=== PATIENT | female | born 1990 ===

== ENCOUNTER 2016-11-20 16:35 | Emergency (ER) | payer SELFPAY ==
[2016-11-20 17:16] LABS: URINE BILIRUBIN NEGATIVE (NEGATIVE); URINE BLOOD NEGATIVE (NEGATIVE); URINE COLOR Straw (YELLOW); URINE GLUCOSE (UA) NORMAL (Normal); URINE KETONE NEGATIVE (NEGATIVE); URINE LEUKOCYTE ESTERASE NEG Leu/uL (Negative); URINE PROTEIN NEGATIVE (NEGATIVE); URINE UROBILINOGEN NORMAL mg/dL (0.2-1.0); WBC URINE < 1 /hpf (0-5)
[2016-11-20] MEDS ORDERED: Sodium Chloride 0.9% 1,000 ML IV ONE (17:32)
[2016-11-20 17:47] LABS: BASO % 0.5 % (0.0-2.0); EOS # 0.3 K/uL (0.0-0.7); EOS % 3.8 % (0.0-4.0); HEMATOCRIT 36.5 % (34.0-47.0); LYMPH # 2.1 K/uL (1.0-4.3); LYMPH % 25.8 % (20.0-40.0); MEAN CELL VOLUME 87.9 fL (81.0-99.0); MEAN CORPUSCULAR HEMOGLOBIN 30.6 pg (27.0-31.0); MEAN CORPUSCULAR HGB CONC 34.8 g/dL (33.0-37.0); MEAN PLATELET VOLUME 8.3 fL (7.2-11.7); MONO # 0.6 K/uL (0.0-0.8); MONO % 6.6 % (0.0-10.0); RED CELL DISTRIBUTION WIDTH 12.6 % (11.5-14.5); WHITE BLOOD COUNT 8.3 K/uL (4.8-10.8)
[2016-11-20] MEDS ORDERED: Sodium Chloride 0.9% 1,000 ML ONE (17:50)
[2016-11-20 17:55] LABS: CHLORIDE 100 mmol/L (98-107); SODIUM 141 mmol/L (132-148)
[2016-11-20 17:56] LABS: POTASSIUM 4.2 mmol/L (3.6-5.2)
[2016-11-20 17:58] LABS: ALB/GLOB RATIO 1.2 (1.0-2.1); ALKALINE PHOSPHATASE 74 U/L (38-126); ALT/SGPT 27 U/L (9-52); AST/SGOT 25 U/L (14-36); BILIRUBIN,TOTAL 0.5 mg/dL (0.2-1.3); BLOOD UREA NITROGEN 11 mg/dL (7-17); CARBON DIOXIDE 28 mmol/L (22-30); GFR AFRICAN-AMERICAN > 60; GLUCOSE,RANDOM 90 mg/dL (65-105); TOTAL PROTEIN 7.7 g/dL (6.3-8.3)
[2016-11-20 17:59] LABS: CALCIUM 9.3 mg/dl (8.6-10.4)
[2016-11-20 19:02] VITALS: O2SAT 98
--- NOTE | 2016-11-20 21:35 | C.PDOC ---
Time Seen by Provider: 11/20/16 16:54 Chief Complaint (Nursing): Abdominal Pain History Per: Patient, Family Onset/Duration Of Symptoms: Hrs (since this morning), Waxing/Waning Current Symptoms Are (Timing): Still Present Severity: Moderate Location Of Pain/Discomfort: RLQ Quality Of Discomfort: "Pain" Alleviating Factors: None Additional History Per: Prior Records Abnormal Vaginal Bleeding: No Past Medical History Reviewed: Historical Data, Nursing Documentation, Vital Signs Vital Signs: Last Vital Signs Temp 98.2 F 11/20/16 16:43 Pulse 86 11/20/16 19:01 Resp 21 11/20/16 19:01 BP 84/55 L 11/20/16 19:01 Pulse Ox 98 11/20/16 19:01 - Medical History Other PMH: Ovarian cysts Surgical History: No Surg Hx Family History: States: Unknown Family Hx - Social History Hx Alcohol Use: No Hx Substance Use: No - Immunization History Hx Tetanus Toxoid Vaccination: No Hx Influenza Vaccination: No Hx Pneumococcal Vaccination: No Review Of Systems Except As Marked, All Systems Reviewed And Found Negative. Constitutional: Negative for: Fever, Weakness Cardiovascular: Negative for: Chest Pain Respiratory: Negative for: Shortness of Breath Gastrointestinal: Positive for: Abdominal Pain. Negative for: Vomiting, Diarrhea Genitourinary: Negative for: Dysuria, Vaginal Discharge, Vaginal Bleeding Musculoskeletal: Negative for: Neck Pain, Back Pain Skin: Negative for: Rash Neurological: Negative for: Weakness, Numbness, Seizures, Altered Mental Status Physical Exam - Physical Exam Appears: Non-toxic, No Acute Distress Skin: Normal Color, Warm, Dry, No Rash Head: Atraumatic, Normacephalic Eye(s): bilateral: Normal Inspection, PERRL, EOMI Neck: Normal ROM, Supple Cardiovascular: Rhythm Regular Respiratory: Normal Breath Sounds, No Accessory Muscle Use Gastrointestinal/Abdominal: Soft, Tenderness (RLQ), No Guarding, No Rebound Back: No CVA Tenderness Extremity: Normal ROM Neurological/Psych: Oriented x3, Normal Motor, Normal Sensation ED Course And Treatment - Laboratory Results Result Diagrams: 11/20/16 17:45 11/20/16 17:45 Lab Interpretation: No Acute Changes Urine POC: Negative O2 Sat by Pulse Oximetry: 98 Pulse Ox Interpretation: Normal - CT Scan/US Pelvic US Other Rad Studies (CT/US): Read By Radiologist, Radiology Report Reviewed CT/US Interpretation: 4cm simple right ovarian cyst. No primary or secondary sonographic findings or ovarian torsion. Progress Note: Pain resolved. Reassessment Condition: Improved Progress - Interventions Interventions:: Observation, Intravenous fluid - Medications Administered Intravenous: NSAID - Data Reviewed Data Reviewed: Lab, Diagnostic imaging, Old records - Patient Status Patient status: Completely improved - Continuity of Care Discussed patient case with:: Patient, Family-HIPPA compliant, ED Nurse - Patient Plan Patient Plan: Discharge, F/U with PCP Disposition Counseled Patient/Family Regarding: Studies Performed, Diagnosis, Need For Followup, Rx Given - Disposition Referrals: [facility] [Outside] Disposition: HOME/ ROUTINE Disposition Time: 21:35 Condition: IMPROVED Additional Instructions: Follow up with a Diet Technician Registered within 1-2 weeks for further evaluation and treatment. Return to the ER if you develop fever, vomiting, dizziness, worsening of symptoms or if you have any other concerns. Prescriptions: Ibuprofen [Motrin Tab] 400 mg PO TID PRN #30 tab PRN Reason: Pain, Moderate (4-7) Instructions: Ovarian Cyst (ED) Forms: [employer]Q (Solomon Islander) Print Language: CITIZ[place] - Clinical Impression Clinical Impression: Right ovarian cyst
[2016-11-20 21:52] VITALS: BP 105/69; PULSE 70; RESP 18; TEMP 98.3
--- NOTE | 2016-11-21 12:50 | US ---
HISTORY: RLQ pain, h/o ovarian cysts COMPARISON: None available. TECHNIQUE: Transabdominal and transvaginal ultrasound examination of the pelvis was obtained. FINDINGS: UTERUS: Measures 7.3 x 3.1 x 3.6 cm. Normal in size and appearance. No fibroid or other mass lesion seen. ENDOMETRIUM: Measures 3.2 mm in diameter. Unremarkable. CERVIX: No cervical abnormality identified. RIGHT OVARY: Measures 4.9 x 3.6 x 4.3 cm. No solid mass. Normal flow. There is 2.2 x 2.7 x 2.1 centimeters cyst seen at the right ovary. There is also 4 x 3.4 x 3.4 centimeter cyst seen at the right ovary. LEFT OVARY: Measures 3.3 x 2.1 x 3.3 cm. No solid mass. Normal flow. FREE FLUID: No significant free fluid noted. OTHER FINDINGS: None. IMPRESSION: Right adnexal cyst measures 4 centimeter. Additional right adnexal cyst measures 2.7 centimeter. If clinically warranted follow-up reassessment is suggested. Blood flow appreciated at the right ovary. Otherwise unremarkable study. Preliminary report was submitted by virtual Radiology.
== END 2016-11-20 21:54 | disposition home or self-care (01) ==
LOC: C.ER 16:35
DX: N83.201 Unspecified ovarian cyst, right side (principal)
CPT/HCPCS: 76830; 76856; 80053; 81001; 84703; 85025; 96361; 96374; 99284; J1885; J7040

== ENCOUNTER 2018-02-18 10:13 | Emergency (ER) | payer OTHER ==
[2018-02-18 10:14] VITALS: BMI 24.4
--- NOTE | 2018-02-18 11:25 | C.PDOC ---
History Of Present Illness 27 y/o female pt with PMHx of ovarian cyst presents to the ER for RLQ abdominal/pelvic pain today that worsened. feels like prior ovarian cyst. Associated sx includes nausea. LMP x6 months ago. Pt has a control implant in her upper arm. Pt denies vomiting, vaginal bleeding, vaginal discharge, urinary frequency, incontinence, hematuria and dysuria. no fever or chills, no change in appetite. Time Seen by Provider: 02/18/18 10:48 Chief Complaint (Nursing): Abdominal Pain History Per: Patient History/Exam Limitations: no limitations Onset/Duration Of Symptoms: Hrs Current Symptoms Are (Timing): Still Present Location Of Pain/Discomfort: RLQ Past Medical History Reviewed: Historical Data, Nursing Documentation, Vital Signs Vital Signs: Last Vital Signs Temp 97.6 F 02/18/18 10:34 Pulse 71 02/18/18 10:34 Resp 20 02/18/18 10:34 BP 93/55 L 02/18/18 10:34 Pulse Ox 99 02/18/18 10:34 Family History: States: Unknown Family Hx - Social History Hx Alcohol Use: No Hx Substance Use: No - Immunization History Hx Tetanus Toxoid Vaccination: No Hx Influenza Vaccination: No Hx Pneumococcal Vaccination: No Review Of Systems Constitutional: Negative for: Fever, Chills Cardiovascular: Negative for: Chest Pain Respiratory: Negative for: Cough, Shortness of Breath Gastrointestinal: Positive for: Nausea, Abdominal Pain (RLQ). Negative for: Vomiting Genitourinary: Positive for: Pelvic Pain (right). Negative for: Dysuria, Frequency, Incontinence, Hematuria, Vaginal Discharge, Vaginal Bleeding Musculoskeletal: Negative for: Back Pain Skin: Negative for: Rash Neurological: Negative for: Weakness, Numbness Physical Exam - Physical Exam Appears: Non-toxic, Other (uncomfortable) Skin: No Rash Head: Atraumatic, Normacephalic Eye(s): bilateral: Normal Inspection Neck: Supple Chest: No Tenderness Cardiovascular: Rhythm Regular, No Murmur Respiratory: No Rales, No Rhonchi, No Wheezing, Other (CTA b/l ) Gastrointestinal/Abdominal: Bowel Sounds (normoactive), Soft, Tenderness (right pelvic area, non tender at mcburneys point), No Distention, No Guarding, No Rebound Back: No CVA Tenderness Extremity: No Calf Tenderness, No Swelling Neurological/Psych: Oriented x3, Normal Speech, Normal Cognition ED Course And Treatment - Laboratory Results Result Diagrams: 02/18/18 11:40 02/18/18 11:40 O2 Sat by Pulse Oximetry: 99 (RA) Pulse Ox Interpretation: Normal Medical Decision Making Medical Decision Making: Impression: RLQ pain with nausea Plans: -- US -- CMP -- blood work -- morphine -- IV fluids -- U-Preg -- UA 1500 pt not . in pain, given morphine.. pt with 2 small ovarian cysts on right ovary with normal flow. pt has normal labs, no hematuria. no signs of urine infection. discussed with Dr Dubose; recommends toradol, re-eval and outpt radiotelegraphist f/u pt feels much better after toradol., discharged to outpatient radiotelegraphist f/u Disposition Counseled Patient/Family Regarding: Studies Performed, Diagnosis, Need For Followup, Rx Given - Disposition Referrals: [facility] at [facility] [Outside] Disposition: HOME/ ROUTINE Disposition Time: 16:55 Condition: IMPROVED Additional Instructions: [place] ibuprofeno para el dolor. Llame a la clnica el lunes por la maana y kristine la annel ms pronto con la sisi de la katina. Regrese a la ramírez de emergencias para un dolor peor, vmitos u otras preocupaciones. Take ibuprofen for pain. Call clinic on Tuesday morning and make soonest appointment with women's health. Return to ER for any worse pain vomiting otr other concerns. Prescriptions: Ibuprofen [Motrin] 600 mg PO TID #30 tab Instructions: Ovarian Cyst (DC) Forms: Gen Discharge Inst Serbian, [employer] (Serbian) Print Language: TRINIDADIAN - Clinical Impression Clinical Impression: Ovarian cyst, right - PA / ASSURANCE ANALYST / Resident Statement / has reviewed & agrees with the documentation as recorded. - Scribe Statement The provider has reviewed the documentation as recorded by the Aime Boateng Do All medical record entries made by the Scribe were at my direction and personally dictated by me. I have reviewed the chart and agree that the record accurately reflects my personal performance of the history, physical exam, medical decision making, and the department course for this patient. I have also personally directed, reviewed, and agree with the discharge instructions and disposition.
[2018-02-18] MEDS ORDERED: Sodium Chloride 0.9% 1,000 ML IV SCH (11:30)
[2018-02-18 11:34] LABS: SQUAMOUS EPITHIAL 8 /hpf (0-5); URINE BILIRUBIN NEGATIVE (NEGATIVE); URINE BLOOD NEGATIVE (NEGATIVE); URINE CLARITY Hazy (Clear); URINE COLOR Yellow (YELLOW); URINE GLUCOSE (UA) NORMAL (Normal); URINE LEUKOCYTE ESTERASE NEG Leu/uL (Negative); URINE PROTEIN NEGATIVE (NEGATIVE); URINE UROBILINOGEN NORMAL mg/dL (0.2-1.0)
[2018-02-18] MEDS ORDERED: Sodium Chloride 0.9% 1,000 ML ONE (11:42)
[2018-02-18 11:44] LABS: BASO % 0.3 % (0.0-2.0); EOS # 0.4 K/uL (0.0-0.7); EOS % 5.8 % (0.0-4.0); HEMOGLOBIN 12.9 g/dL (11.0-16.0); LYMPH # 1.4 K/uL (1.0-4.3); LYMPH % 20.9 % (20.0-40.0); MEAN CELL VOLUME 89.8 fL (81.0-99.0); MEAN CORPUSCULAR HEMOGLOBIN 31.1 pg (27.0-31.0); MEAN CORPUSCULAR HGB CONC 34.6 g/dL (33.0-37.0); MONO # 0.4 K/uL (0.0-0.8); MONO % 6.1 % (0.0-10.0); NEUT # 4.5 K/uL (1.8-7.0); NEUT % 66.9 % (50.0-75.0); RBC 4.14 Mil/uL (3.80-5.20); RED CELL DISTRIBUTION WIDTH 12.8 % (11.5-14.5); WHITE BLOOD COUNT 6.7 K/uL (4.8-10.8)
[2018-02-18 11:54] LABS: ALB/GLOB RATIO 1.4 (1.0-2.1); ALBUMIN 4.6 g/dL (3.5-5.0); ALT/SGPT 28 U/L (9-52); AST/SGOT 27 U/L (14-36); BLOOD UREA NITROGEN 14 mg/dL (7-17); CALCIUM 9.4 mg/dl (8.6-10.4); GFR NON-AFRICAN AMERICAN > 60
--- NOTE | 2018-02-18 14:03 | US ---
Date of service: 02/18/2018 HISTORY: RLQ pain. hx right cyst COMPARISON: None available. TECHNIQUE: Transabdominal/transvaginal FINDINGS: UTERUS: Measures 6.1 x 2.5 x 3.0 cm. Anteverted. Normal in size and appearance. No fibroid or other mass lesion seen. ENDOMETRIUM: Measures 4.5 mm mm in diameter. Unremarkable. CERVIX: No cervical abnormality identified. RIGHT OVARY: Measures 2.6 x 4.6 x 5.3 cm. No solid mass. Normal flow.. There are 2 cysts present of the 1st measuring 2.7 x 2.2 x 2.8 and another adjacent cyst measuring 2.9 x 2.5 x 3.0 cm. LEFT OVARY: Seen on transabdominal study only measures approximately 3.3 x 1.7 x 2.8 cm. No solid mass. Normal flow. FREE FLUID: No significant free fluid noted. OTHER FINDINGS: None. IMPRESSION: 2 right-sided ovarian cysts.
[2018-02-18 16:47] VITALS: BP 131/72; PULSE 86; RESP 16; TEMP 98.2
[2018-02-18 16:54] VITALS: O2SAT 99
== END 2018-02-18 17:14 | disposition home or self-care (01) ==
LOC: C.ER 10:13
DX: N83.201 Unspecified ovarian cyst, right side (principal)
CPT/HCPCS: 76830; 76856; 80053; 81001; 85025; 96361; 96374; 96375; 96376; 99284; J2270; J2405; J7030

== ENCOUNTER 2018-02-21 01:10 | Inpatient (IN) | payer OTHER ==
[2018-02-21 01:10] VITALS: BMI 24.4
[2018-02-21] MEDS ORDERED: Sodium Chloride 0.9% 1,000 ML IV ONE ×2 (01:31→05:48)
--- NOTE | 2018-02-21 01:31 | C.PDOC ---
History Of Present Illness Patient presents to the ER with a complaint of a sharp stabbing RLQ abdominal pain. She was seen 3 days ago in the ER where she had an US that showed ovarian cyst and negative blood work. Patient presents today because the pain is un relieved with motrin. Denies fever, chills, nausea, or vomiting. Time Seen by Provider: 02/21/18 01:30 Chief Complaint (Nursing): Abdominal Pain History Per: Patient History/Exam Limitations: no limitations Onset/Duration Of Symptoms: Days Current Symptoms Are (Timing): Still Present Severity: Moderate Pain Scale Rating Of: 5 Location Of Pain/Discomfort: RLQ Radiation Of Pain To:: None Quality Of Discomfort: Sharp, Stabbing Associated Symptoms: denies: Fever, Chills, Nausea, Vomiting Exacerbating Factors: None Alleviating Factors: None Recent travel outside of the [place]: No Abnormal Vaginal Bleeding: No Past Medical History Reviewed: Historical Data, Nursing Documentation, Vital Signs Vital Signs: Last Vital Signs Temp 98.4 F 02/21/18 01:14 Pulse 90 02/21/18 01:14 Resp 20 02/21/18 01:14 BP 108/71 02/21/18 01:14 Pulse Ox 97 02/21/18 01:14 Family History: States: No Known Family Hx - Social History Hx Alcohol Use: No Hx Substance Use: No - Immunization History Hx Tetanus Toxoid Vaccination: No Hx Influenza Vaccination: No Hx Pneumococcal Vaccination: No Review Of Systems Constitutional: Negative for: Fever, Chills Cardiovascular: Negative for: Chest Pain, Palpitations Respiratory: Negative for: Cough, Shortness of Breath Gastrointestinal: Positive for: Abdominal Pain. Negative for: Nausea, Vomiting Neurological: Negative for: Weakness, Numbness Physical Exam - Physical Exam Appears: Non-toxic Skin: Warm, Dry Head: Normacephalic Oral Mucosa: Moist Chest: Symmetrical, No Tenderness Cardiovascular: Rhythm Regular Respiratory: No Rales, No Rhonchi, No Wheezing Gastrointestinal/Abdominal: Soft, Tenderness (RLQ), No Guarding, No Rebound Neurological/Psych: Oriented x3 ED Course And Treatment - Laboratory Results Result Diagrams: 02/21/18 01:39 02/21/18 01:38 O2 Sat by Pulse Oximetry: 97 (room air) Pulse Ox Interpretation: Normal Progress Note: CT abd/pel, blood work, and urinalysis ordered. IV fluids, morphine, toradol, and zofran administered. Disposition Discussed With : Wilman Cardenas Comment: accepted the pt on his service and took over the care at 5:48AM Doctor Will See Patient In The: Hospital Counseled Patient/Family Regarding: Studies Performed, Diagnosis - Disposition Disposition: HOSPITALIZED Disposition Time: 01:31 Condition: FAIR Forms: [employer] (Micronesian) - POA Present On Arrival: None - Clinical Impression Clinical Impression: Abdominal pain, Constipation, Appendicolith - Scribe Statement The provider has reviewed the documentation as recorded by the Scribmaria g Murcia All medical record entries made by the Olvinibe were at my direction and personally dictated by me. I have reviewed the chart and agree that the record accurately reflects my personal performance of the history, physical exam, medical decision making, and the department course for this patient. I have also personally directed, reviewed, and agree with the discharge instructions and disposition. Decision To Admit - Pt Status Changed To: Hospital Disposition Of: Inpatient - Admit Certification Admit to Inpatient:: After my assessment, the patient will require hospitalization for at least two midnights. This is because of the severity of symptoms shown, intensity of services needed, and/or the medical risk in this patient being treated as an outpatient. - InPatient: Physician Admission Certification:: After my assessment, the patient will require hospitalization for at least two midnights. This is because of the severity of symptoms shown, intensity of services needed, and/or the medical risk in this patient being treated as an outpatient. - . Bed Request Type: Regular Admitting Physician: Wilman Cardenas Patient Diagnosis: Abdominal pain, Constipation, Appendicolith
[2018-02-21 01:42] LABS: BASO % 0.3 % (0.0-2.0); EOS # 0.8 K/uL (0.0-0.7); EOS % 9.7 % (0.0-4.0); HEMOGLOBIN 12.5 g/dL (11.0-16.0); LYMPH # 3.1 K/uL (1.0-4.3); LYMPH % 38.8 % (20.0-40.0); MEAN CORPUSCULAR HGB CONC 34.1 g/dL (33.0-37.0); MEAN PLATELET VOLUME 8.3 fL (7.2-11.7); MONO # 0.6 K/uL (0.0-0.8); MONO % 7.2 % (0.0-10.0); NEUT # 3.5 K/uL (1.8-7.0); RBC 4.02 Mil/uL (3.80-5.20); RED CELL DISTRIBUTION WIDTH 12.8 % (11.5-14.5); WHITE BLOOD COUNT 8.1 K/uL (4.8-10.8)
[2018-02-21] MEDS ORDERED: Sodium Chloride 0.9% 1,000 ML ONE (01:42)
[2018-02-21] MEDS ORDERED: Morphine 4 MG/ML VIAL ONE ×2 (01:42→04:17)
[2018-02-21] MEDS ORDERED: Iohexol 240 (50 ml) ONE (01:47)
[2018-02-21 01:48] LABS: SQUAMOUS EPITHIAL 1 /hpf (0-5); URINE BILIRUBIN NEGATIVE (NEGATIVE); URINE BLOOD NEGATIVE (NEGATIVE); URINE CLARITY Clear (Clear); URINE COLOR Yellow (YELLOW); URINE GLUCOSE (UA) NORMAL (Normal); URINE LEUKOCYTE ESTERASE NEG Leu/uL (Negative); URINE PROTEIN NEGATIVE (NEGATIVE); URINE UROBILINOGEN NORMAL mg/dL (0.2-1.0)
[2018-02-21 01:49] LABS: HCG,QUALITATIVE URINE NEGATIVE (NEGATIVE)
[2018-02-21 01:54] LABS: INR 1.1; PROTHROMBIN TIME 11.6 SECONDS (9.7-12.2)
[2018-02-21 01:56] LABS: ALB/GLOB RATIO 1.4 (1.0-2.1); ALBUMIN 4.5 g/dL (3.5-5.0); ALT/SGPT 25 U/L (9-52); AST/SGOT 25 U/L (14-36); BLOOD UREA NITROGEN 14 mg/dL (7-17); CALCIUM 9.1 mg/dl (8.6-10.4); GFR NON-AFRICAN AMERICAN > 60; LIPASE 71 U/L (23-300)
[2018-02-21] MEDS ORDERED: Iodixanol 320 MG/ML 100 ML BOTTLE IV ONE (02:04)
[2018-02-21] MEDS ORDERED: Iohexol 240 (50 ml) PO ONE (03:42)
--- NOTE | 2018-02-21 05:55 | CP.PCM.CON ---
History of Present Illness - History of Present Illness History of Present Illness: General Surgery Consult For Dr. Soto This is a 27F with a PMH of hyperprolactinemia. She presents due to right sided abdominal pain that she has had since Tuesday. She reports that she has never had pain like this in the past. She reports that the pain was gradual onset Tuesday and that it was always localized to the right side. She reports that pain almost feels like pressure and it is relieved when she feels gas moving in her abdomen and when she urinates. She does not recall when she had her last bowel movement however she does pass gas. She denies any fevers chills chest pain or SOB, nausea, or vomiting. In the ED she had CT scan scan showed stool throughout the colon, a right sided ovarian cyst, and an apendicolith. PMH: See above PSH: Denies ALL: Bromocriptine Social: Denies Vices Review of Systems - Constitutional Constitutional: absent: Anorexia, Chills, Fever - EENT Eyes: absent: Blurred Vision, Change in Vision - Cardiovascular Cardiovascular: absent: Chest Pain, Dyspnea - Respiratory Respiratory: absent: Dyspnea, Dyspnea on Exertion - Gastrointestinal Gastrointestinal: Abdominal Pain, Bloating, Constipation. absent: Diarrhea, Loose Stools, Nausea, Vomiting - Genitourinary Genitourinary: absent: Difficulty Urinating, Dysuria - Musculoskeletal Musculoskeletal: absent: Arthralgias, Muscle Weakness - Integumentary Integumentary: absent: Rash, Wounds Past Patient History - Past Social History Smoking Status: Never Smoked - ENDOCRINE/METABOLIC Other/Comment: Elevated Prolactine - PSYCHIATRIC Hx Substance Use: No - SURGICAL HISTORY Hx Surgeries: No - ANESTHESIA Hx Anesthesia: No Meds Allergies/Adverse Reactions: Allergies Allergy/AdvReac Type Severity Reaction Status Date / Time No Known Allergies Allergy Verified 08/19/17 20:17 - Medications Medications: Current Medications Sodium Chloride (Sodium Chloride 0.9%) 1,000 mls @ 100 mls/hr IV .Q10H ONE Stop: 02/21/18 15:47 Physical Exam - Constitutional Appears: Non-toxic, No Acute Distress - Head Exam Head Exam: ATRAUMATIC, NORMOCEPHALIC - Eye Exam Eye Exam: EOMI, Normal appearance - ENT Exam ENT Exam: Mucous Membranes Moist - Respiratory Exam Respiratory Exam: NORMAL BREATHING PATTERN - Cardiovascular Exam Cardiovascular Exam: +S1, +S2 - GI/Abdominal Exam GI & Abdominal Exam: Soft, Tenderness. absent: Distended, Firm, Guarding, Hernia, Rebound, Rigid - Neurological Exam Neurological exam: Alert, Oriented x3 - Psychiatric Exam Psychiatric exam: Normal Affect, Normal Mood - Skin Skin Exam: Dry, Intact Results - Vital Signs Recent Vital Signs: Last Vital Signs Temp 98.1 F 02/21/18 04:24 Pulse 79 02/21/18 04:24 Resp 20 02/21/18 04:24 BP 109/63 02/21/18 04:24 Pulse Ox 99 02/21/18 04:24 - Labs Result Diagrams: 02/21/18 01:39 02/21/18 01:38 Labs: Laboratory Results - last 24 hr 02/21/18 02/21/18 02/21/18 01:38 01:39 01:39 WBC 8.1 RBC 4.02 Hgb 12.5 Hct 36.6 MCV 91.0 MCH 31.0 MCHC 34.1 RDW 12.8 Plt Count 277 MPV 8.3 Neut % (Auto) 44.0 L Lymph % (Auto) 38.8 [place] % (Auto) 7.2 Eos % (Auto) 9.7 H Baso % (Auto) 0.3 Neut # (Auto) 3.5 Lymph # (Auto) 3.1 [place] # (Auto) 0.6 Eos # (Auto) 0.8 H Baso # (Auto) 0.0 PT 11.6 INR 1.1 APTT 35 H Sodium 140 Potassium 4.1 Chloride 102 Carbon Dioxide 28 Anion Gap 14 BUN 14 Creatinine 0.8 Est GFR ( Amer) > 60 Est GFR (Non-Af Amer) > 60 Random Glucose 112 H Calcium 9.1 Total Bilirubin 0.3 AST 25 ALT 25 Alkaline Phosphatase 79 Total Protein 7.7 Albumin 4.5 Globulin 3.1 Albumin/Globulin Ratio 1.4 Lipase 71 Urine Color Urine Clarity Urine pH Ur Specific [place] Urine Protein Urine Glucose (UA) Urine Ketones Urine Blood Urine Nitrate Urine Bilirubin Urine Urobilinogen Ur Leukocyte Esterase Urine WBC (Auto) Urine RBC (Auto) Ur Squamous Epith Cells Urine HCG, Qual 02/21/18 01:40 WBC RBC Hgb Hct MCV MCH MCHC RDW Plt Count MPV Neut % (Auto) Lymph % (Auto) [place] % (Auto) Eos % (Auto) Baso % (Auto) Neut # (Auto) Lymph # (Auto) [place] # (Auto) Eos # (Auto) Baso # (Auto) PT INR APTT Sodium Potassium Chloride Carbon Dioxide Anion Gap BUN Creatinine Est GFR ( Amer) Est GFR (Non-Af Amer) Random Glucose Calcium Total Bilirubin AST ALT Alkaline Phosphatase Total Protein Albumin Globulin Albumin/Globulin Ratio Lipase Urine Color Yellow Urine Clarity Clear Urine pH 7.0 Ur Specific [place] 1.021 Urine Protein Negative Urine Glucose (UA) Normal Urine Ketones Negative Urine Blood Negative Urine Nitrate Negative Urine Bilirubin Negative Urine Urobilinogen Normal Ur Leukocyte Esterase Neg Urine WBC (Auto) < 1 Urine RBC (Auto) 3 Ur Squamous Epith Cells 1 Urine HCG, Qual Negative - Imaging and Cardiology CT scan - abdomen Status: Image reviewed by me, Report reviewed by me CT scan - pelvis Status: Image reviewed by me, Report reviewed by me Assessment & Plan - Assessment and Plan (Free Text) Assessment: 27F with abdominal pain CT: Stool throughout colon, appendicolith, right sided ovarian cyst Plan: NPO IVF Followup official CT report Serial Abdominal exams Enema D/W Dr. Brittany Resendez PGY3
[2018-02-21] MEDS ORDERED: Albuterol 0.083% Inhal Sol (2.5 mg/3 mL) UD ONE (06:28)
--- NOTE | 2018-02-21 07:22 | CP.PCM.HP ---
History of Present Illness - History of Present Illness History of Present Illness: Ms. Nathen Jacobs is 27 year old female with a PMHx of ovarian cyst and elevated prolactin levels who presents with 10/10, sharp, abdominal pain that radiates to her back. She denies any aggravating factors but states it is relieved with urination and defecation. She denies using any modalities to treat the pain. Patient had a similar pain on Tuesday, TV US showed ovarian cyst. Patient was given morphine in the ED with resolution of her pain, she was discharged with Ibuprofen. ROS POSITIVE: Abdominal pain, Constipation, NBNB Vomiting (On Tuesday) NEGATIVES: Fevers, chills, Chest Pain, SOB, nausea, vomiting (Since admission), diarrhea, urinary frequency/urgency, dysuria. PMHx: Ovarian Cyst, Elevated Prolactin Lvl PSHx: Denies Allergies: Flax Seeds (Anaphylaxis), Bromocriptine (Anaphylaxis) SocialHx: Denies tobacco, EtoH, and illicit drug use Hos: Denies Family History: Abdominal Muscle CA - Father () Meds: Nexplanon (Left Arm) Present on Admission - Present on Admission Any Indicators Present on Admission: No Review of Systems - Review of Systems All systems: reviewed and no additional remarkable complaints except (As per HPI) Review of Systems: As per HPI Past Patient History - Past Social History Smoking Status: Never Smoked - ENDOCRINE/METABOLIC Other/Comment: Elevated Prolactine - PSYCHIATRIC Hx Substance Use: No - SURGICAL HISTORY Hx Surgeries: No - ANESTHESIA Hx Anesthesia: No Meds Allergies/Adverse Reactions: Allergies Allergy/AdvReac Type Severity Reaction Status Date / Time bromocriptine Allergy ANAPHYLAXIS Verified 02/21/18 14:10 flaxseed Allergy ANAPHYLAXIS Verified 02/21/18 14:10 Physical Exam - Constitutional Appears: Well, Non-toxic, No Acute Distress - Head Exam Head Exam: ATRAUMATIC, NORMAL INSPECTION, NORMOCEPHALIC - Eye Exam Eye Exam: EOMI, Normal appearance - ENT Exam ENT Exam: Mucous Membranes Moist - Neck Exam Neck exam: Negative for: Lymphadenopathy - Respiratory Exam Respiratory Exam: Clear to Auscultation Bilateral. absent: Accessory Muscle Use, Rales, Rhonchi, Wheezes - Cardiovascular Exam Cardiovascular Exam: RRR, +S1, +S2 - GI/Abdominal Exam GI & Abdominal Exam: Hyperactive Bowel Sounds, Soft, Tenderness (RUQ). absent: Distended, Firm, Guarding, Rebound Additional comments: Trimble's sign Negative - Extremities Exam Extremities exam: Positive for: normal capillary refill, normal inspection, pedal pulses present. Negative for: pedal edema - Back Exam Back exam: absent: CVA tenderness (L), CVA tenderness (R) - Neurological Exam Neurological exam: Alert, Oriented x3 - Psychiatric Exam Psychiatric exam: Normal Affect, Normal Mood - Skin Skin Exam: Dry, Intact, Normal Color, Warm Results - Vital Signs Recent Vital Signs: Last Vital Signs Temp 97.6 F 02/21/18 06:48 Pulse 74 02/21/18 06:48 Resp 20 02/21/18 06:48 BP 102/61 02/21/18 06:48 Pulse Ox 100 02/21/18 06:48 - Labs Result Diagrams: 02/21/18 01:39 02/21/18 01:38 Labs: Laboratory Results - last 24 hr 02/21/18 02/21/18 02/21/18 01:38 01:39 01:39 WBC 8.1 RBC 4.02 Hgb 12.5 Hct 36.6 MCV 91.0 MCH 31.0 MCHC 34.1 RDW 12.8 Plt Count 277 MPV 8.3 Neut % (Auto) 44.0 L Lymph % (Auto) 38.8 Lucas % (Auto) 7.2 Eos % (Auto) 9.7 H Baso % (Auto) 0.3 Neut # (Auto) 3.5 Lymph # (Auto) 3.1 [place] # (Auto) 0.6 Eos # (Auto) 0.8 H Baso # (Auto) 0.0 PT 11.6 INR 1.1 APTT 35 H Sodium 140 Potassium 4.1 Chloride 102 Carbon Dioxide 28 Anion Gap 14 BUN 14 Creatinine 0.8 Est GFR ( Amer) > 60 Est GFR (Non-Af Amer) > 60 Random Glucose 112 H Calcium 9.1 Total Bilirubin 0.3 AST 25 ALT 25 Alkaline Phosphatase 79 Total Protein 7.7 Albumin 4.5 Globulin 3.1 Albumin/Globulin Ratio 1.4 Lipase 71 Urine Color Urine Clarity Urine pH Ur Specific [place] Urine Protein Urine Glucose (UA) Urine Ketones Urine Blood Urine Nitrate Urine Bilirubin Urine Urobilinogen Ur Leukocyte Esterase Urine WBC (Auto) Urine RBC (Auto) Ur Squamous Epith Cells Urine HCG, Qual 02/21/18 01:40 WBC RBC Hgb Hct MCV MCH MCHC RDW Plt Count MPV Neut % (Auto) Lymph % (Auto) [place] % (Auto) Eos % (Auto) Baso % (Auto) Neut # (Auto) Lymph # (Auto) [place] # (Auto) Eos # (Auto) Baso # (Auto) PT INR APTT Sodium Potassium Chloride Carbon Dioxide Anion Gap BUN Creatinine Est GFR ( Amer) Est GFR (Non-Af Amer) Random Glucose Calcium Total Bilirubin AST ALT Alkaline Phosphatase Total Protein Albumin Globulin Albumin/Globulin Ratio Lipase Urine Color Yellow Urine Clarity Clear Urine pH 7.0 Ur Specific [place] 1.021 Urine Protein Negative Urine Glucose (UA) Normal Urine Ketones Negative Urine Blood Negative Urine Nitrate Negative Urine Bilirubin Negative Urine Urobilinogen Normal Ur Leukocyte Esterase Neg Urine WBC (Auto) < 1 Urine RBC (Auto) 3 Ur Squamous Epith Cells 1 Urine HCG, Qual Negative Assessment & Plan - Assessment and Plan (Free Text) Assessment: 27 year old female with PMHx of Ovarian Cyst and elevated prolactin lvls admitted for evaluation and treatment of abdominal pain. Plan: Abdominal Pain DDx: Constipation vs Acute Appendicitis. CT Abd/Pelvis (Admission): The tip of the appendix is dilated and contains a 5 mm appendicolith. The tip of the appendix is 15 mm in diameter. There are no inflammatory changes. Findings could represent early appendicitis. Clinical correlation is suggested. There are 2 contiguous 3 cm right adnexal cysts. There is no fluid in the cul-de-sac to suggest cyst rupture General Surgery Consulted (Dr. Soto), Recs appreciated. -Enema x 1, Serial Abd Exams, NPO, IVF Meds: Morphine 2 Q4H PRN Zofran NS @ 100mls/hr Tylenol PRN Proph NPO, SCD's Patient seen and discussed with Attending (Dr. Dimitris Cardenas) Deyvi Singh, PGY-2
--- NOTE | 2018-02-21 09:52 | CT ---
Date of service: 02/21/2018 PROCEDURE: CT Abdomen and Pelvis with contrast HISTORY: rlq abd pain , ovarian cysts COMPARISON: None. TECHNIQUE: Contrast dose: 100 cc of Visipaque Radiation dose: Total exam DLP = 241.9 mGy-cm. This CT exam was performed using one or more of the following dose reduction techniques: Automated exposure control, adjustment of the mA and/or kV according to patient size, and/or use of iterative reconstruction technique. FINDINGS: LOWER THORAX: Unremarkable. LIVER: There is a 4.4 cm enhancing lesion in the right lobe of the liver. The features are consistent with hemangioma GALLBLADDER AND BILE DUCTS: Unremarkable. PANCREAS: Unremarkable. No gross lesion or ductal dilatation. SPLEEN: Unremarkable. ADRENALS: Unremarkable. No mass. KIDNEYS AND URETERS: Unremarkable. No hydronephrosis. No solid mass. VASCULATURE: Unremarkable. No aortic aneurysm. No aortic atherosclerotic calcification or mural plaque present. BOWEL: Unremarkable. No obstruction. No gross mural thickening. APPENDIX: The tip of the appendix is dilated and contains a 5 mm appendicolith. The tip of the appendix is 15 mm in diameter. There are no inflammatory changes. Findings could represent early appendicitis. Clinical correlation is suggested PERITONEUM: Unremarkable. No free fluid. No free air. LYMPH NODES: Unremarkable. No enlarged lymph nodes. BLADDER: Unremarkable. REPRODUCTIVE: There are 2 contiguous 3 cm right adnexal cysts. There is no fluid in the cul-de-sac to suggest cyst rupture BONES: No acute fracture. OTHER FINDINGS: The report concurs with the preliminary [facility] report IMPRESSION: The tip of the appendix is dilated and contains a 5 mm appendicolith. The tip of the appendix is 15 mm in diameter. There are no inflammatory changes. Findings could represent early appendicitis. Clinical correlation is suggested There are 2 contiguous 3 cm right adnexal cysts. There is no fluid in the cul-de-sac to suggest cyst rupture
[2018-02-21 11:17] VITALS: RESP 20
--- NOTE | 2018-02-21 15:42 | CP.PCM.HP ---
History of Present Illness - History of Present Illness History of Present Illness: Patient came in with right lower quadrant pain to the emergency room without nausea fever chills patient's family bedside I spoke to Dr. vito Saini surgical doctor who claims most likely constipation although he spoke to the GI doctor who wants to repeat the CAT scan after an enema CT scan revealed deep of the appendix dilated and contains 5 metal appendicolith tip of the appendix is 15 mm in diameter no inflammatory process may be early appendiceal Present on Admission - Present on Admission Any Indicators Present on Admission: No Past Patient History - Past Medical History & Family History Past Medical History?: Yes - Past Social History Smoking Status: Never Smoked - CARDIAC Hx Cardiac Disorders: No - PULMONARY Hx Respiratory Disorders: No - NEUROLOGICAL Hx Neurological Disorder: No - HEENT Hx HEENT Problems: No - RENAL Hx Chronic Kidney Disease: No - ENDOCRINE/METABOLIC Other/Comment: Elevated Prolactine - HEMATOLOGICAL/ONCOLOGICAL Hx Blood Disorders: No - INTEGUMENTARY Hx Dermatological Problems: No - MUSCULOSKELETAL/RHEUMATOLOGICAL Hx Musculoskeletal Disorders: No Hx Falls: No - GASTROINTESTINAL Hx Gastrointestinal Disorders: No - GENITOURINARY/GYNECOLOGICAL Other/Comment: ovarian cyst - PSYCHIATRIC Hx Substance Use: No - SURGICAL HISTORY Hx Surgeries: No - ANESTHESIA Hx Anesthesia: No Meds Allergies/Adverse Reactions: Allergies Allergy/AdvReac Type Severity Reaction Status Date / Time bromocriptine Allergy ANAPHYLAXIS Verified 02/21/18 14:10 flaxseed Allergy ANAPHYLAXIS Verified 02/21/18 14:10 Physical Exam - Constitutional Appears: Well - Head Exam Head Exam: ATRAUMATIC, NORMAL INSPECTION, NORMOCEPHALIC - Eye Exam Eye Exam: EOMI, Normal appearance, PERRL Pupil Exam: NORMAL ACCOMODATION, PERRL - ENT Exam ENT Exam: Mucous Membranes Moist, Normal Exam - Neck Exam Neck exam: Positive for: Normal Inspection - Respiratory Exam Respiratory Exam: Decreased Breath Sounds - Cardiovascular Exam Cardiovascular Exam: REGULAR RHYTHM, +S1, +S2 - GI/Abdominal Exam GI & Abdominal Exam: Diminished Bowel Sounds, Soft - Rectal Exam Rectal Exam: Deferred Results - Vital Signs Recent Vital Signs: Last Vital Signs Temp 99.1 F 02/21/18 09:15 Pulse 60 02/21/18 09:15 Resp 20 02/21/18 09:15 BP 102/64 02/21/18 09:15 Pulse Ox 99 02/21/18 09:15 - Labs Result Diagrams: 02/21/18 01:39 02/21/18 01:38 Labs: Laboratory Results - last 24 hr 02/21/18 02/21/18 02/21/18 01:38 01:39 01:39 WBC 8.1 RBC 4.02 Hgb 12.5 Hct 36.6 MCV 91.0 MCH 31.0 MCHC 34.1 RDW 12.8 Plt Count 277 MPV 8.3 Neut % (Auto) 44.0 L Lymph % (Auto) 38.8 [place] % (Auto) 7.2 Eos % (Auto) 9.7 H Baso % (Auto) 0.3 Neut # (Auto) 3.5 Lymph # (Auto) 3.1 [place] # (Auto) 0.6 Eos # (Auto) 0.8 H Baso # (Auto) 0.0 PT 11.6 INR 1.1 APTT 35 H Sodium 140 Potassium 4.1 Chloride 102 Carbon Dioxide 28 Anion Gap 14 BUN 14 Creatinine 0.8 Est GFR ( Amer) > 60 Est GFR (Non-Af Amer) > 60 Random Glucose 112 H Calcium 9.1 Phosphorus 4.4 Magnesium 2.1 Total Bilirubin 0.3 AST 25 ALT 25 Alkaline Phosphatase 79 Total Protein 7.7 Albumin 4.5 Globulin 3.1 Albumin/Globulin Ratio 1.4 Lipase 71 Urine Color Urine Clarity Urine pH Ur Specific [place] Urine Protein Urine Glucose (UA) Urine Ketones Urine Blood Urine Nitrate Urine Bilirubin Urine Urobilinogen Ur Leukocyte Esterase Urine WBC (Auto) Urine RBC (Auto) Ur Squamous Epith Cells Urine HCG, Qual 02/21/18 01:40 WBC RBC Hgb Hct MCV MCH MCHC RDW Plt Count MPV Neut % (Auto) Lymph % (Auto) [place] % (Auto) Eos % (Auto) Baso % (Auto) Neut # (Auto) Lymph # (Auto) [place] # (Auto) Eos # (Auto) Baso # (Auto) PT INR APTT Sodium Potassium Chloride Carbon Dioxide Anion Gap BUN Creatinine Est GFR ( Amer) Est GFR (Non-Af Amer) Random Glucose Calcium Phosphorus Magnesium Total Bilirubin AST ALT Alkaline Phosphatase Total Protein Albumin Globulin Albumin/Globulin Ratio Lipase Urine Color Yellow Urine Clarity Clear Urine pH 7.0 Ur Specific [place] 1.021 Urine Protein Negative Urine Glucose (UA) Normal Urine Ketones Negative Urine Blood Negative Urine Nitrate Negative Urine Bilirubin Negative Urine Urobilinogen Normal Ur Leukocyte Esterase Neg Urine WBC (Auto) < 1 Urine RBC (Auto) 3 Ur Squamous Epith Cells 1 Urine HCG, Qual Negative Assessment & Plan - Assessment and Plan (Free Text) Plan: Plan ultrasound workup as an outpatient's Fleet Enema Surgical follow-up GI follow-up Morphine sx want to repeat the CAT scan after the enema if phleboliths will still be there may need a surgery Abdominal Pain DDx: Constipation vs Acute Appendicitis. CT Abd/Pelvis (Admission): The tip of the appendix is dilated and contains a 5 mm appendicolith. The tip of the appendix is 15 mm in diameter. There are no inflammatory changes. Findings could represent early appendicitis. Clinical correlation is suggested. There are 2 contiguous 3 cm right adnexal cysts. There is no fluid in the cul-de-sac to suggest cyst rupture General Surgery Consulted (Dr. Soto), Recs appreciated. -Enema x 1, Serial Abd Exams, NPO, IVF Meds: Morphine 2 Q4H PRN Zofran NS @ 100mls/hr Tylenol PRN Proph NPO, SCD's oarian cyst adn adnexial cyst wrk up as outpt
[2018-02-22 01:03] VITALS: TEMP 98.5
[2018-02-22 07:27] LABS: BASO % 0.4 % (0.0-2.0); EOS # 0.6 K/uL (0.0-0.7); EOS % 10.2 % (0.0-4.0); HEMOGLOBIN 12.4 g/dL (11.0-16.0); LYMPH # 2.3 K/uL (1.0-4.3); LYMPH % 37.2 % (20.0-40.0); MEAN CORPUSCULAR HEMOGLOBIN 30.6 pg (27.0-31.0); MEAN CORPUSCULAR HGB CONC 33.7 g/dL (33.0-37.0); MEAN PLATELET VOLUME 8.4 fL (7.2-11.7); MONO # 0.4 K/uL (0.0-0.8); MONO % 7.3 % (0.0-10.0); NEUT # 2.7 K/uL (1.8-7.0); NEUT % 44.9 % (50.0-75.0); RBC 4.05 Mil/uL (3.80-5.20); RED CELL DISTRIBUTION WIDTH 12.8 % (11.5-14.5); WHITE BLOOD COUNT 6.1 K/uL (4.8-10.8)
[2018-02-22 07:41] LABS: ALB/GLOB RATIO 1.3 (1.0-2.1); ALT/SGPT 22 U/L (9-52); AST/SGOT 31 U/L (14-36); BLOOD UREA NITROGEN 7 mg/dL (7-17); CALCIUM 9.5 mg/dl (8.6-10.4); GFR NON-AFRICAN AMERICAN > 60
--- NOTE | 2018-02-22 07:44 | CP.PCM.CON ---
<MarieljorgedariaJorge Luis - Last Filed: 02/22/18 07:38> History of Present Illness - History of Present Illness History of Present Illness: GI Fellow PGY4, Consult note. Aracely Jacobs is a very pleasant 27F who presented with acute abdominal pain. The pain started last Tuesday located in the right side of the abdomen. The pain was moderate-severe and sharp. She was seen in ED at that time and found to have ovarian cysts and discharged with Motrin. The pain did not improve and she returned to the ED. A CT scan showed an appendicolith with dilated distal appendix but not acute inflammatory changes. The CT also showed a significant amount of stool in the colon as well as a 4.4cm hepatic hemangioma. Labs were normal. Patient admits to having history of constipation. She admits to staying hydrated, but does not consume large amounts of fiber. She does not take any medications at home for this problem. She was given an enema and abdominal pain has resolved after bowel movement. PMHx - hyperprolactinemia, negative pituitary MRI. Ovarian cysts. PSHx - none FMHx - unremarkable SocHx - Denies alcohol or tobacco use. 12pt ROS completed and negative except for above. Past Patient History - Past Medical History & Family History Past Medical History?: Yes - Past Social History Smoking Status: Never Smoked - CARDIAC Hx Cardiac Disorders: No - PULMONARY Hx Respiratory Disorders: No - NEUROLOGICAL Hx Neurological Disorder: No - HEENT Hx HEENT Problems: No - RENAL Hx Chronic Kidney Disease: No - ENDOCRINE/METABOLIC Other/Comment: Elevated Prolactine - HEMATOLOGICAL/ONCOLOGICAL Hx Blood Disorders: No - INTEGUMENTARY Hx Dermatological Problems: No - MUSCULOSKELETAL/RHEUMATOLOGICAL Hx Musculoskeletal Disorders: No Hx Falls: No - GASTROINTESTINAL Hx Gastrointestinal Disorders: No - GENITOURINARY/GYNECOLOGICAL Other/Comment: ovarian cyst - PSYCHIATRIC Hx Substance Use: No - SURGICAL HISTORY Hx Surgeries: No - ANESTHESIA Hx Anesthesia: No Meds Allergies/Adverse Reactions: Allergies Allergy/AdvReac Type Severity Reaction Status Date / Time bromocriptine Allergy ANAPHYLAXIS Verified 02/21/18 14:10 flaxseed Allergy ANAPHYLAXIS Verified 02/21/18 14:10 - Medications Medications: Current Medications Acetaminophen (Tylenol 325mg Tab) 650 mg PO Q6 PRN PRN Reason: Fever >100.4 F Influenza Virus Vaccine (Fluzone Quad [id number]) 60 mcg IM .ONCE ONE Stop: 02/23/18 10:01 Morphine Sulfate (Morphine) 2 mg IVP Q4 PRN PRN Reason: Pain, severe (8-10) Ondansetron HCl (Zofran Inj) 4 mg IVP Q6H PRN PRN Reason: Nausea/Vomiting Pneumococcal Polyvalent Vaccine (Pneumovax 23 Vaccine) 0.5 ml IM .ONCE ONE Stop: 02/23/18 10:01 Physical Exam - Constitutional Appears: Well, Non-toxic - Head Exam Head Exam: NORMAL INSPECTION, NORMOCEPHALIC - Eye Exam Eye Exam: EOMI, Normal appearance - ENT Exam ENT Exam: Mucous Membranes Moist, Normal Exam - Respiratory Exam Respiratory Exam: Clear to Auscultation Bilateral, NORMAL BREATHING PATTERN - Cardiovascular Exam Cardiovascular Exam: REGULAR RHYTHM, +S1, +S2 - GI/Abdominal Exam GI & Abdominal Exam: Normal Bowel Sounds, Soft. absent: Organomegaly, Tend erness - Extremities Exam Extremities exam: Positive for: full ROM, normal inspection - Neurological Exam Neurological exam: Alert, CN II-XII Intact, Oriented x3 - Psychiatric Exam Psychiatric exam: Normal Affect, Normal Mood - Skin Skin Exam: Dry, Normal Color Results - Vital Signs Recent Vital Signs: Last Vital Signs Temp 98.5 F 02/22/18 00:00 Pulse 75 02/22/18 00:00 Resp 20 02/22/18 00:00 BP 113/69 02/22/18 00:00 Pulse Ox 97 02/22/18 00:00 - Labs Result Diagrams: 02/22/18 07:07 02/21/18 01:38 Labs: Laboratory Results - last 24 hr 02/21/18 02/22/18 01:38 07:07 WBC 6.1 RBC 4.05 Hgb 12.4 Hct 36.9 MCV 91.0 MCH 30.6 MCHC 33.7 RDW 12.8 Plt Count 276 MPV 8.4 Neut % (Auto) 44.9 L Lymph % (Auto) 37.2 [place] % (Auto) 7.3 Eos % (Auto) 10.2 H Baso % (Auto) 0.4 Neut # (Auto) 2.7 Lymph # (Auto) 2.3 [place] # (Auto) 0.4 Eos # (Auto) 0.6 Baso # (Auto) 0.0 Sodium 140 Potassium 4.1 Chloride 102 Carbon Dioxide 28 Anion Gap 14 BUN 14 Creatinine 0.8 Est GFR ( Amer) > 60 Est GFR (Non-Af Amer) > 60 Random Glucose 112 H Calcium 9.1 Phosphorus 4.4 Magnesium 2.1 Total Bilirubin 0.3 AST 25 ALT 25 Alkaline Phosphatase 79 Total Protein 7.7 Albumin 4.5 Globulin 3.1 Albumin/Globulin Ratio 1.4 Lipase 71 Assessment & Plan - Assessment and Plan (Free Text) Assessment: #Abdominal pain #constipation #Hepatic hemangioma - 4.4cm #Ovarian cysts #Hyperprolactinemia PLAN: -Labs and imaging reviewed. Stool filled colon. Appendicolith, no acute changes. Hemangioma. -Improved after enema. -Continue bowel regimen -Advance diet to regular -Educated patient on high fiber diet. -No endoscopic evaluation planned. - Date & Time Date: 02/22/18 Time: 07:45 <Kwan Reddy - Last Filed: 02/22/18 10:17> Meds - Medications Medications: Current Medications Acetaminophen (Tylenol 325mg Tab) 650 mg PO Q6 PRN PRN Reason: Fever >100.4 F Influenza Virus Vaccine (Fluzone Quad [id number]) 60 mcg IM .ONCE ONE Stop: 02/23/18 10:01 Morphine Sulfate (Morphine) 2 mg IVP Q4 PRN PRN Reason: Pain, severe (8-10) Ondansetron HCl (Zofran Inj) 4 mg IVP Q6H PRN PRN Reason: Nausea/Vomiting Pneumococcal Polyvalent Vaccine (Pneumovax 23 Vaccine) 0.5 ml IM .ONCE ONE Stop: 02/23/18 10:01 Polyethylene Glycol (Miralax) 17 gm PO BID KEITH Results - Vital Signs Recent Vital Signs: Last Vital Signs Temp 98.5 F 02/22/18 08:02 Pulse 66 02/22/18 08:02 Resp 20 02/22/18 08:02 BP 99/61 L 02/22/18 08:02 Pulse Ox 100 02/22/18 08:02 - Labs Result Diagrams: 02/22/18 07:07 02/22/18 07:07 Labs: Laboratory Results - last 24 hr 02/21/18 02/22/18 02/22/18 01:38 07:07 07:07 WBC 6.1 RBC 4.05 Hgb 12.4 Hct 36.9 MCV 91.0 MCH 30.6 MCHC 33.7 RDW 12.8 Plt Count 276 MPV 8.4 Neut % (Auto) 44.9 L Lymph % (Auto) 37.2 [place] % (Auto) 7.3 Eos % (Auto) 10.2 H Baso % (Auto) 0.4 Neut # (Auto) 2.7 Lymph # (Auto) 2.3 [place] # (Auto) 0.4 Eos # (Auto) 0.6 Baso # (Auto) 0.0 PT 12.8 H INR 1.2 APTT 33 Sodium 140 Potassium 4.1 Chloride 102 Carbon Dioxide 28 Anion Gap 14 BUN 14 Creatinine 0.8 Est GFR ( Amer) > 60 Est GFR (Non-Af Amer) > 60 Random Glucose 112 H Calcium 9.1 Phosphorus 4.4 Magnesium 2.1 Total Bilirubin 0.3 AST 25 ALT 25 Alkaline Phosphatase 79 Total Protein 7.7 Albumin 4.5 Globulin 3.1 Albumin/Globulin Ratio 1.4 Lipase 71 02/22/18 07:07 WBC RBC Hgb Hct MCV MCH MCHC RDW Plt Count MPV Neut % (Auto) Lymph % (Auto) [place] % (Auto) Eos % (Auto) Baso % (Auto) Neut # (Auto) Lymph # (Auto) [place] # (Auto) Eos # (Auto) Baso # (Auto) PT INR APTT Sodium 140 Potassium 4.0 Chloride 103 Carbon Dioxide 27 Anion Gap 15 BUN 7 Creatinine 0.7 Est GFR ( Amer) > 60 Est GFR (Non-Af Amer) > 60 Random Glucose 86 Calcium 9.5 Phosphorus Magnesium Total Bilirubin 0.6 AST 31 ALT 22 Alkaline Phosphatase 56 Total Protein 7.2 Albumin 4.0 Globulin 3.1 Albumin/Globulin Ratio 1.3 Lipase Attending/Attestation - Attestation I have personally seen and examined this patient.: Yes I have fully participated in the care of the patient.: Yes I have reviewed all pertinent clinical information: Yes Notes (Text): 02/22/18 10:14 I have seen and examined patient with GI fellow. Agree with above documentation with the following additions. In brief, this is a 27 year old female with history of constipation who presents to hospital with complaint of progressive abdominal pain. She typically has a bowel movement every 2 days however prior to admission to hospital had not had a bowel movement for 4 days. She described sharp right sided abdominal pain that was 5/10 intensity and radiated to pelvic area. She denies nausea, vomiting, fever/chills, weight loss, rectal bleeding. No prior endoscopic evaluation. Review of vitals from today are normal. Abdominal pain Constipation CT imaging reviewed by me showing questionable dilated appendix, fecal retention , hepatic hemangioma - Advance diet as tolerated - Follow up surgical recommendations - Initiate bowel regimen to prevent recurrent constipation - Encourage patient to increase PO water and fiber intake - No further planned GI intervention, will sign off case. Please reconsult as necessary, thank you.
[2018-02-22 07:49] LABS: INR 1.2; PROTHROMBIN TIME 12.8 SECONDS (9.7-12.2)
[2018-02-22 09:31] VITALS: BP 99/61; PULSE 66; O2SAT 100
[2018-02-22] MEDS ORDERED: POLYETHYLENE GLYCOL 3350 17 GM/Dose PACKET PO SCH (10:00)
--- NOTE | 2018-02-22 14:40 | CP.PCM.DIS ---
Provider - Provider Date of Admission: 02/21/18 05:46 Attending physician: María Cardenas MD Consults: General Surgery - Possible Appendicitis. Time Spent in preparation of Discharge (in minutes): 45 Hospital Course - Lab Results Lab Results: Most Recent Lab Values WBC 6.1 K/uL (4.8-10.8) 02/22/18 07:07 RBC 4.05 Mil/uL (3.80-5.20) 02/22/18 07:07 Hgb 12.4 g/dL (11.0-16.0) 02/22/18 07:07 Hct 36.9 % (34.0-47.0) 02/22/18 07:07 MCV 91.0 fL (81.0-99.0) 02/22/18 07:07 MCH 30.6 pg (27.0-31.0) 02/22/18 07:07 MCHC 33.7 g/dL (33.0-37.0) 02/22/18 07:07 RDW 12.8 % (11.5-14.5) 02/22/18 07:07 Plt Count 276 K/uL (130-400) 02/22/18 07:07 MPV 8.4 fL (7.2-11.7) 02/22/18 07:07 Neut % (Auto) 44.9 % (50.0-75.0) L 02/22/18 07:07 Lymph % (Auto) 37.2 % (20.0-40.0) 02/22/18 07:07 [place] % (Auto) 7.3 % (0.0-10.0) 02/22/18 07:07 Eos % (Auto) 10.2 % (0.0-4.0) H 02/22/18 07:07 Baso % (Auto) 0.4 % (0.0-2.0) 02/22/18 07:07 Neut # (Auto) 2.7 K/uL (1.8-7.0) 02/22/18 07:07 Lymph # (Auto) 2.3 K/uL (1.0-4.3) 02/22/18 07:07 [place] # (Auto) 0.4 K/uL (0.0-0.8) 02/22/18 07:07 Eos # (Auto) 0.6 K/uL (0.0-0.7) 02/22/18 07:07 Baso # (Auto) 0.0 K/uL (0.0-0.2) 02/22/18 07:07 PT 12.8 SECONDS (9.7-12.2) H 02/22/18 07:07 INR 1.2 02/22/18 07:07 APTT 33 SECONDS (21-34) 02/22/18 07:07 Sodium 140 mmol/L (132-148) 02/22/18 07:07 Potassium 4.0 mmol/L (3.6-5.2) 02/22/18 07:07 Chloride 103 mmol/L (98-107) 02/22/18 07:07 Carbon Dioxide 27 mmol/L (22-30) 02/22/18 07:07 Anion Gap 15 (10-20) 02/22/18 07:07 BUN 7 mg/dL (7-17) 02/22/18 07:07 Creatinine 0.7 mg/dL (0.7-1.2) 02/22/18 07:07 Est GFR ( Amer) > 60 02/22/18 07:07 Est GFR (Non-Af Amer) > 60 02/22/18 07:07 Random Glucose 86 mg/dL (65-105) 02/22/18 07:07 Calcium 9.5 mg/dl (8.6-10.4) 02/22/18 07:07 Phosphorus 4.4 mg/dL (2.5-4.5) 02/21/18 01:38 Magnesium 2.1 mg/dL (1.6-2.3) 02/21/18 01:38 Total Bilirubin 0.6 mg/dL (0.2-1.3) 02/22/18 07:07 AST 31 U/L (14-36) 02/22/18 07:07 ALT 22 U/L (9-52) 02/22/18 07:07 Alkaline Phosphatase 56 U/L (38-126) 02/22/18 07:07 Total Protein 7.2 g/dL (6.3-8.3) 02/22/18 07:07 Albumin 4.0 g/dL (3.5-5.0) 02/22/18 07:07 Globulin 3.1 gm/dL (2.2-3.9) 02/22/18 07:07 Albumin/Globulin Ratio 1.3 (1.0-2.1) 02/22/18 07:07 Lipase 71 U/L (23-300) 02/21/18 01:38 Urine Color Yellow (YELLOW) 02/21/18 01:40 Urine Clarity Clear (Clear) 02/21/18 01:40 Urine pH 7.0 (5.0-8.0) 02/21/18 01:40 Ur Specific [place] 1.021 (1.003-1.030) 02/21/18 01:40 Urine Protein Negative mg/dL (NEGATIVE) 02/21/18 01:40 Urine Glucose (UA) Normal mg/dL (Normal) 02/21/18 01:40 Urine Ketones Negative mg/dL (NEGATIVE) 02/21/18 01:40 Urine Blood Negative (NEGATIVE) 02/21/18 01:40 Urine Nitrate Negative (NEGATIVE) 02/21/18 01:40 Urine Bilirubin Negative (NEGATIVE) 02/21/18 01:40 Urine Urobilinogen Normal mg/dL (0.2-1.0) 02/21/18 01:40 Ur Leukocyte Esterase Neg [place]/uL (Negative) 02/21/18 01:40 Urine WBC (Auto) < 1 /hpf (0-5) 02/21/18 01:40 Urine RBC (Auto) 3 /hpf (0-3) 02/21/18 01:40 Ur Squamous Epith Cells 1 /hpf (0-5) 02/21/18 01:40 Urine HCG, Qual Negative (NEGATIVE) 02/21/18 01:40 - Hospital Course Hospital Course: 27 year old female with PMHx of Ovarian Cyst and elevated prolactin lvls admitted for evaluation and treatment of abdominal pain. Bloodwork on admission was unremarkable. CT Abd/Pelvis impression read " CT Abd/Pelvis (Admission): The tip of the appendix is dilated and contains a 5 mm appendicolith. The tip of the appendix is 15 mm in diameter. There are no inflammatory changes. Findings could represent early appendicitis. Clinical correlation is suggested. There are 2 contiguous 3 cm right adnexal cysts. There is no fluid in the cul-de-sac to suggest cyst rupture". General Surgery was consulted on the case. Patient was given enema with resolution of her constipation and abdominal pain. She tolerated a regular diet at lunch time on 02/22/18. Patient is stable for discharge. She was told to follow up with her PMD. She stated she did not have one so she was told to follow up at [facility]. She agreed to that plan. No new medications were added during this visit. Abdominal Pain DDx: Constipation vs Acute Appendicitis. CT Abd/Pelvis (Admission): The tip of the appendix is dilated and contains a 5 mm appendicolith. The tip of the appendix is 15 mm in diameter. There are no inflammatory changes. Findings could represent early appendicitis. Clinical correlation is suggested. There are 2 contiguous 3 cm right adnexal cysts. There is no fluid in the cul-de-sac to suggest cyst rupture General Surgery Consulted (Dr. Soto), Recs appreciated. -Enema x 1, Serial Abd Exams, NPO, IVF Meds: Morphine 2 Q4H PRN Zofran Tylenol PRN Discharge Exam - Head Exam Head Exam: ATRAUMATIC, NORMAL INSPECTION, NORMOCEPHALIC - Eye Exam Eye Exam: EOMI, Normal appearance, PERRL. absent: Scleral icterus - Respiratory Exam Respiratory Exam: Clear to PA & Lateral, NORMAL BREATHING PATTERN. absent: A ccessory Muscle Use, Rales, Rhonchi - Cardiovascular Exam Cardiovascular Exam: RRR, +S1, +S2 - GI/Abdominal Exam GI & Abdominal Exam: Normal Bowel Sounds, Soft. absent: Distended, Firm, Guarding, Hernia, Mass, Organomegaly, Rebound, Rigid, Tenderness - Extremities Exam Extremities exam: normal capillary refill, pedal pulses present - Back Exam Back exam: absent: CVA tenderness (L), CVA tenderness (R) - Neurological Exam Neurological exam: Alert, Oriented x3 - Psychiatric Exam Psychiatric exam: Normal Affect, Normal Mood - Skin Skin Exam: Dry, Intact, Normal Color, Warm Discharge Plan - Follow Up Plan Condition: GOOD Disposition: HOME/ ROUTINE Instructions: Constipation, Adult (DC), Acute Abdomen (Belly Pain), Adult (DC) Additional Instructions: Please establish care with primary medical provider within 7 days of discharge. [facility] Please make appointment as soon as you get discharged. Please increase dietary fiber to help with constipation. [id number] Stool Softners like Colace may also help. Referrals: [facility] [Outside]
--- NOTE | 2018-02-22 14:41 | CP.PCM.PN ---
Subjective - Date & Time of Evaluation Date of Evaluation: 02/22/18 Time of Evaluation: 08:15 - Subjective Subjective: clinically same Objective - Vital Signs/Intake and Output Vital Signs (last 24 hours): Temp Pulse Resp BP Pulse Ox 98.5 F 66 20 99/61 L 100 02/22/18 08:02 02/22/18 08:02 02/22/18 08:02 02/22/18 08:02 02/22/18 08:02 Intake and Output: 02/22/18 02/22/18 06:59 18:59 Intake Total 0 Balance 0 - Medications Medications: Current Medications Acetaminophen (Tylenol 325mg Tab) 650 mg PO Q6 PRN PRN Reason: Fever >100.4 F Influenza Virus Vaccine (Fluzone Quad 8024-9930) 60 mcg IM .ONCE ONE Stop: 02/23/18 10:01 Morphine Sulfate (Morphine) 2 mg IVP Q4 PRN PRN Reason: Pain, severe (8-10) Ondansetron HCl (Zofran Inj) 4 mg IVP Q6H PRN PRN Reason: Nausea/Vomiting Pneumococcal Polyvalent Vaccine (Pneumovax 23 Vaccine) 0.5 ml IM .ONCE ONE Stop: 02/23/18 10:01 Polyethylene Glycol (Miralax) 17 gm PO BID KEITH Last Admin: 02/22/18 10:57 Dose: 17 gm - Labs Labs: 02/22/18 07:07 02/22/18 07:07 PT 12.8 SECONDS (9.7-12.2) H 02/22/18 07:07 INR 1.2 02/22/18 07:07 APTT 33 SECONDS (21-34) 02/22/18 07:07 - Constitutional Appears: Well - Head Exam Head Exam: ATRAUMATIC, NORMAL INSPECTION, NORMOCEPHALIC - Eye Exam Eye Exam: EOMI, Normal appearance, PERRL Pupil Exam: NORMAL ACCOMODATION, PERRL - ENT Exam ENT Exam: Mucous Membranes Moist, Normal Exam - Neck Exam Neck Exam: Full ROM, Normal Inspection. absent: Lymphadenopathy - Respiratory Exam Respiratory Exam: Decreased Breath Sounds - Cardiovascular Exam Cardiovascular Exam: REGULAR RHYTHM, +S1, +S2 - GI/Abdominal Exam GI & Abdominal Exam: Soft, Diminished Bowel Sounds - Rectal Exam Rectal Exam: Deferred
[2018-02-22] MEDS ORDERED: Pneumococcal 23-Valent Vaccine IM ONE (17:00)
[2018-02-22] MEDS ORDERED: Influenza Vaccine 60 MCG/0.5 ML SYR (3 yr & up) IM ONE (17:00)
--- NOTE | 2018-02-22 18:24 | CP.PCM.PN ---
Subjective - Date & Time of Evaluation Date of Evaluation: 02/22/18 Time of Evaluation: 18:20 - Subjective Subjective: General Surgery Progress Note for Dr. Soto This 27F was seen and examined this Am t bedside no acute events overnight. The patient deneis abdominal pain she is passing gas and moving her bowels. No new complaints at this time. Objective - Vital Signs/Intake and Output Vital Signs (last 24 hours): Temp Pulse Resp BP Pulse Ox 98.5 F 66 20 99/61 L 100 02/22/18 08:02 02/22/18 08:02 02/22/18 08:02 02/22/18 08:02 02/22/18 08:02 Intake and Output: 02/22/18 02/22/18 06:59 18:59 Intake Total 500 Balance 500 - Labs Labs: 02/22/18 07:07 02/22/18 07:07 PT 12.8 SECONDS (9.7-12.2) H 02/22/18 07:07 INR 1.2 02/22/18 07:07 APTT 33 SECONDS (21-34) 02/22/18 07:07 - Constitutional Appears: Non-toxic, No Acute Distress - Head Exam Head Exam: ATRAUMATIC, NORMOCEPHALIC - Eye Exam Eye Exam: EOMI - ENT Exam ENT Exam: Mucous Membranes Moist - Respiratory Exam Respiratory Exam: NORMAL BREATHING PATTERN - Cardiovascular Exam Cardiovascular Exam: +S1, +S2 - GI/Abdominal Exam GI & Abdominal Exam: Soft. absent: Firm, Guarding, Rigid, Tenderness - Neurological Exam Neurological Exam: Alert, Awake - Psychiatric Exam Psychiatric exam: Normal Affect, Normal Mood - Skin Skin Exam: Dry, Intact Assessment and Plan - Assessment and Plan (Free Text) Assessment: 27F with resolved abdominal pain Plan: Clear for d/c home recommend stool softeners Further recs per Dr. Brittany Resendez PGY3
== END 2018-02-22 17:12 | disposition home or self-care (01) | DRG 254 ==
LOC: C.ER 01:10 → C.9E 05:46 → C.3T 08:47
PROVIDERS: ADMIT Internal Medicine Nephrology; ATTEND Internal Medicine Nephrology
DX: K38.1 Appendicular concretions (principal); E22.1 Hyperprolactinemia; K35.890 Other acute appendicitis without perforation or gangrene; K59.00 Constipation, unspecified; D18.03 Hemangioma of intra-abdominal structures; N83.201 Unspecified ovarian cyst, right side

== ENCOUNTER 2018-08-21 16:40 | Inpatient (IN) | payer OTHER ==
[2018-08-21 16:40] VITALS: BMI 24.4
[2018-08-21 18:10] LABS: BASO % 0.3 % (0.0-2.0); EOS # 1.1 K/uL (0.0-0.7); EOS % 10.5 % (0.0-4.0); HEMOGLOBIN 14.8 g/dL (11.0-16.0); LYMPH % 19.2 % (20.0-40.0); MEAN CELL VOLUME 92.5 fL (81.0-99.0); MEAN CORPUSCULAR HEMOGLOBIN 31.3 pg (27.0-31.0); MEAN CORPUSCULAR HGB CONC 33.8 g/dL (33.0-37.0); MEAN PLATELET VOLUME 8.4 fL (7.2-11.7); MONO # 0.7 K/uL (0.0-0.8); MONO % 6.8 % (0.0-10.0); NEUT # 6.7 K/uL (1.8-7.0); NEUT % 63.2 % (50.0-75.0); NRBC % 0.1 % (0.0-2.0); RBC 4.74 Mil/uL (3.80-5.20); RED CELL DISTRIBUTION WIDTH 12.7 % (11.5-14.5); WHITE BLOOD COUNT 10.6 K/uL (4.8-10.8)
[2018-08-21] MEDS ORDERED: Sodium Chloride 0.9% 1,000 ML IV ONE (18:11)
[2018-08-21 18:21] LABS: HCG,QUALITATIVE URINE NEGATIVE (NEGATIVE)
[2018-08-21 18:25] LABS: SQUAMOUS EPITHIAL 1 /hpf (0-5); URINE BILIRUBIN NEGATIVE (NEGATIVE); URINE BLOOD NEGATIVE (NEGATIVE); URINE CLARITY Clear (Clear); URINE COLOR Yellow (YELLOW); URINE GLUCOSE (UA) NORMAL (Normal); URINE LEUKOCYTE ESTERASE NEG Leu/uL (Negative); URINE PROTEIN NEGATIVE (NEGATIVE); URINE UROBILINOGEN NORMAL mg/dL (0.2-1.0)
[2018-08-21] MEDS ORDERED: Sodium Chloride 0.9% 250 ML IV ONE (18:29)
[2018-08-21 18:53] LABS: ALB/GLOB RATIO 1.1 (1.0-2.1); ALBUMIN 4.7 g/dL (3.5-5.0); ALT/SGPT 26 U/L (9-52); AST/SGOT 49 U/L (14-36); BLOOD UREA NITROGEN 9 mg/dL (7-17); CALCIUM 9.9 mg/dl (8.6-10.4); GFR NON-AFRICAN AMERICAN > 60
[2018-08-21] MEDS ORDERED: Iodixanol 320 MG/ML 100 ML BOTTLE IV ONE (19:05)
--- NOTE | 2018-08-21 19:33 | C.PDOC ---
History Of Present Illness 27-year-old female presents to the ED for evaluation of right lower quadrant abdominal pain since last night. Patient went to another institution, where she was told that she is constipated. Patient presents to the ED for evaluation of persistent pain. She denies fever, chills, nausea, vomiting. Time Seen by Provider: 08/21/18 18:06 Chief Complaint (Nursing): Abdominal Pain History Per: Patient History/Exam Limitations: no limitations Onset/Duration Of Symptoms: Other (one week ) Current Symptoms Are (Timing): Still Present Location Of Pain/Discomfort: RLQ Quality Of Discomfort: "Pain" Associated Symptoms: denies: Fever, Chills, Nausea, Vomiting Past Medical History Reviewed: Historical Data, Nursing Documentation, Vital Signs Vital Signs: Last Vital Signs Temp 98.8 F 08/21/18 17:31 Pulse 84 08/21/18 17:31 Resp 20 08/21/18 17:31 BP 111/78 08/21/18 17:31 Pulse Ox 100 08/21/18 17:31 Primary Care Provider: FAMILY PROVIDER,NO - Medical History PMH: No Chronic Diseases Denies: Chronic Kidney Disease Surgical History: No Surg Hx Family History: States: Unknown Family Hx - Social History Hx Alcohol Use: No Hx Substance Use: No - Immunization History Hx Tetanus Toxoid Vaccination: No Hx Influenza Vaccination: No Hx Pneumococcal Vaccination: No Review Of Systems Constitutional: Negative for: Fever, Chills Gastrointestinal: Positive for: Abdominal Pain (right lower quadrant ). Negative for: Nausea, Vomiting Physical Exam - Physical Exam Appears: Non-toxic, No Acute Distress Skin: Normal Color, Warm, Dry Head: Atraumatic, Normacephalic Oral Mucosa: Moist Neck: Supple Chest: Symmetrical, No Deformity, No Tenderness Cardiovascular: Rhythm Regular, No Murmur Respiratory: Normal Breath Sounds, No Rales, No Rhonchi, No Wheezing Gastrointestinal/Abdominal: Soft, Tenderness (right lower quadrant ), No Guarding, No Rebound Extremity: Normal ROM, Capillary Refill (less than 2 seconds ) Neurological/Psych: Oriented x3, Normal Speech, Normal Cognition ED Course And Treatment - Laboratory Results Result Diagrams: 08/21/18 18:06 08/21/18 18:06 Lab Results: Total Bilirubin 0.5 mg/dL (0.2-1.3) 08/21/18 18:06 AST 49 U/L (14-36) H D 08/21/18 18:06 ALT 26 U/L (9-52) 08/21/18 18:06 Alkaline Phosphatase 87 U/L (38-126) 08/21/18 18:06 Total Protein 8.9 g/dL (6.3-8.3) H 08/21/18 18:06 Albumin 4.7 g/dL (3.5-5.0) 08/21/18 18:06 Globulin 4.2 gm/dL (2.2-3.9) H 08/21/18 18:06 Albumin/Globulin Ratio 1.1 (1.0-2.1) 08/21/18 18:06 Lipase 50 U/L (23-300) 08/21/18 18:26 Urine Color Yellow (YELLOW) 08/21/18 18:06 Urine Clarity Clear (Clear) 08/21/18 18:06 Urine pH 6.0 (5.0-8.0) 08/21/18 18:06 Ur Specific [place] 1.014 (1.003-1.030) 08/21/18 18:06 Urine Protein Negative mg/dL (NEGATIVE) 08/21/18 18:06 Urine Glucose (UA) Normal mg/dL (Normal) 08/21/18 18:06 Urine Ketones Trace mg/dL (NEGATIVE) 08/21/18 18:06 Urine Blood Negative (NEGATIVE) 08/21/18 18:06 Urine Nitrate Negative (NEGATIVE) 08/21/18 18:06 Urine Bilirubin Negative (NEGATIVE) 08/21/18 18:06 Urine Urobilinogen Normal mg/dL (0.2-1.0) 08/21/18 18:06 Ur Leukocyte Esterase Neg Mansi/uL (Negative) 08/21/18 18:06 Urine WBC (Auto) < 1 /hpf (0-5) 08/21/18 18:06 Urine RBC (Auto) < 1 /hpf (0-3) 08/21/18 18:06 Ur Squamous Epith Cells 1 /hpf (0-5) 08/21/18 18:06 Urine HCG, Qual Negative (NEGATIVE) 08/21/18 18:06 Urine HCG, Qual Negative (NEGATIVE) 08/21/18 18:06 O2 Sat by Pulse Oximetry: 100 (on RA ) Pulse Ox Interpretation: Normal - CT Scan/US CT abd/pevlis Other Rad Studies (CT/US): Read By Radiologist, Radiology Report Reviewed CT/US Interpretation: EXAM: CT Abdomen and Pelvis with IV contrast. CLINICAL HISTORY: RLQ pain. TECHNIQUE: Axial computed tomography images of the abdomen and pelvis with intravenous contrast. 0.00 mGy-cm. CONTRAST: With; 100MLS VISI 320. COMPARISON: Images from prior CT abdomen and pelvis examination dated 02/21/2018 are unavailable for comparison; however, the report was reviewed. FINDINGS: LUNG BASES: The lung bases appear clear. No pleural effusions are seen. LIVER: A 4.3 x 3.5 cm strongly enhancing lesion is seen in the postero-lateral right hepatic lobe with central nonenhancing area consistent with scar. The lesion is most consistent with focal nodular hyperplasia. ppears within normal limits. No radioopaque gallstones are seen. No biliary ductal dilatation is evident. PANCREAS: Unremarkable. SPLEEN: Unremarkable. ADRENAL GLANDS: Unremarkable. KIDNEYS, URETERS, AND BLADDER: The kidneys appear within normal limits. There is no hydronephrosis or hydroureter. No urinary calculi are seen. The urinary bladder appeared normal in size and configuration. STOMACH AND BOWEL: Unremarkable appearance of the stomach and bowel. No evidence of bowel obstruction. There is mild mucosal wall thickening throughout the small and large intestine with fluid in the lumen noted thought compatible with diffuse enterocolitis. Infectious or inflammatory etiologies are thought most likely. APPENDIX: An appendicolith is seen in the distal lumen of the appendix. The distal appendix is dilated up to 1.5 cm transversely. Subtle periappendiceal inflammatory stranding is also identified. The possibility of acute appendicitis must be considered. PERITONEUM: No free fluid. No free air. LYMPH NODES: No lymphadenopathy is evident. REPRODUCTIVE: A 5.4 x 3.3 cm cyst is seen in the right adnexal region with a subtle internal transverse septation. An additional 3.0 cm adjacent cystic mass is noted. Consideration could be given to correlation with TV pelvic ultrasound for further definition. The uterus appears normal in size and position. VASCULATURE: No evidence of abdominal aortic aneurysm. BONES: No aggressive appearing osseous lesion. No acute osseous pathology evident. IMPRESSION: 1. Evidence of diffuse enterocolitis. 2. Findings suspicious for appendicitis involving the distal tip of the appendix with associated appendicolith. 3. A 4.3 x 3.5 cm right hepatic mass as above most consistent with focal nodular hyperplasia. Stable in size in correlation with prior report. 4. Multiple right adnexal cystic masses as described above. Consideration could be given to correlation with TV pelvic ultrasound for further characterization. . Electronically signed on August 21, 2018 9:05:36 PM EDT by: Shubham Conrad M.D., M.B.A., Certified By [employer]BR. Fellowship Trained MRI and CT Specialist. Medical Decision Making Medical Decision Making: Progress: Bloodwork, urinalysis, CT A/P ordered and reviewed. Tylenol PO, Zofran IVP and IV Fluids given. ct shows possible appenciits/enterocolitis. accpetd dr renee request dr kiera keen. accepted to floor. sp antibiotics pt developed itching. benadryl given. Disposition - Disposition Disposition: HOSPITALIZED Disposition Time: 23:00 Condition: STABLE - Clinical Impression Clinical Impression: Appendicitis - Scribe Statement The provider has reviewed the documentation as recorded by the Scribe (Kita Renee) Provider Attestation: All medical record entries made by the Scribe were at my direction and personally dictated by me. I have reviewed the chart and agree that the record accurately reflects my personal performance of the history, physical exam, medical decision making, and the department course for this patient. I have also personally directed, reviewed, and agree with the discharge instructions and disposition. Decision To Admit - Pt Status Changed To: Hospital Disposition Of: Inpatient - Admit Certification Admit to Inpatient:: After my assessment, the patient will require hospitalization for at least two midnights. This is because of the severity of symptoms shown, intensity of services needed, and/or the medical risk in this patient being treated as an outpatient. - InPatient: Physician Admission Certification:: needs antitibitocs - . Bed Request Type: Regular Admitting Physician: Wilman Renee Patient Diagnosis: Appendicitis
[2018-08-21] MEDS ORDERED: Piperacillin/Tazobact 3.375 gm 100 ML IVPB STA (21:07)
[2018-08-21] MEDS ORDERED: Piperacillin/Tazobact 3.375 gm 100 ML IVPB ONE (21:38)
[2018-08-21] MEDS ORDERED: DiphenhydrAMINE 50 mg/ml Inj ONE (22:36)
[2018-08-21] MEDS ORDERED: DiphenhydrAMINE 50 mg/ml Inj IVP STA (22:37)
--- NOTE | 2018-08-21 22:37 | CP.PCM.CON ---
History of Present Illness - History of Present Illness History of Present Illness: General Surgery Consult for Dr. Soto Consult: Right lower quadrant pain HPI: 27 year old female, no significant past medical history, seen and evaluated in the emergency department. Patient presents with right lower quadrant abdominal pain that started this morning after having a bowel movement. Stool soft in consistency, nonbloody. Patient had been constipated for the last 3 days. Admits to bloating and nausea. Patient currently does not have appetite, afraid eating will exacerbate symptoms. States when she stands its more painful, and sitting or lying down alleviates pain. Did not take any medication for symptomatic relief. Denies fever, chills, diarrhea, vomiting, pelvic pain, dysuria, melena, chest pain, SOB, or urinary symptoms. PMH: Right ovarian cysts PSH: Denies FH: Father passed from stomach cancer SH: Denies tobacco, alcohol, drugs ALL: Bromocriptine, flax seeds Meds: See MAR Review of Systems - Constitutional Constitutional: absent: Chills, Fever, Weight Loss, Weakness - EENT Eyes: absent: Blurred Vision, Change in Vision Nose/Mouth/Throat: absent: Nasal Congestion, Nasal Discharge - Cardiovascular Cardiovascular: absent: Chest Pain, Dyspnea - Respiratory Respiratory: absent: Cough, Dyspnea - Gastrointestinal Gastrointestinal: Abdominal Pain, Bloating, Nausea. absent: Constipation, Diarrhea, Dysphagia, Heartburn, Melena, Temesmus, Vomiting - Genitourinary Genitourinary: absent: Difficulty Urinating, Dysuria - Reproductive: Female Reproductive:Female: absent: Pelvic Pain, Vaginal Discharge - Musculoskeletal Musculoskeletal: absent: Back Pain, Neck Pain - Integumentary Integumentary: absent: Bleeding Lesions, Changing Lesions - Neurological Neurological: absent: Confusion, Dizziness - Psychiatric Psychiatric: absent: Anxiety, Depression Past Patient History - Past Medical History & Family History Past Medical History?: Yes - Past Social History Smoking Status: Never Smoked - CARDIAC Hx Cardiac Disorders: No - PULMONARY Hx Respiratory Disorders: No - NEUROLOGICAL Hx Neurological Disorder: No - HEENT Hx HEENT Problems: No - RENAL Hx Chronic Kidney Disease: No - ENDOCRINE/METABOLIC Other/Comment: Elevated Prolactine - HEMATOLOGICAL/ONCOLOGICAL Hx Blood Disorders: No - INTEGUMENTARY Hx Dermatological Problems: No - MUSCULOSKELETAL/RHEUMATOLOGICAL Hx Musculoskeletal Disorders: No Hx Falls: No - GASTROINTESTINAL Hx Gastrointestinal Disorders: Yes Hx Constipation: Yes - GENITOURINARY/GYNECOLOGICAL Hx Genitourinary Disorders: Yes Other/Comment: ovarian cyst - PSYCHIATRIC Hx Substance Use: No - SURGICAL HISTORY Hx Surgeries: No - ANESTHESIA Hx Anesthesia: No Meds Allergies/Adverse Reactions: Allergies Allergy/AdvReac Type Severity Reaction Status Date / Time bromocriptine Allergy ANAPHYLAXIS Verified 02/21/18 14:10 flaxseed Allergy ANAPHYLAXIS Verified 02/21/18 14:10 Physical Exam - Constitutional Appears: Well, Non-toxic, No Acute Distress - Head Exam Head Exam: ATRAUMATIC, NORMAL INSPECTION, NORMOCEPHALIC - Eye Exam Eye Exam: EOMI Pupil Exam: PERRL - ENT Exam ENT Exam: Mucous Membranes Moist - Respiratory Exam Respiratory Exam: NORMAL BREATHING PATTERN. absent: Wheezes, Respiratory Distress - Cardiovascular Exam Cardiovascular Exam: REGULAR RHYTHM, +S1, +S2 - GI/Abdominal Exam GI & Abdominal Exam: Normal Bowel Sounds, Soft. absent: Distended, Guarding, Rebound, Tenderness - Extremities Exam Extremities exam: Positive for: normal inspection, pedal pulses present - Neurological Exam Neurological exam: Alert, Oriented x3 - Psychiatric Exam Psychiatric exam: Normal Affect, Normal Mood - Skin Skin Exam: Dry, Intact, Normal Color, Warm Results - Vital Signs Recent Vital Signs: Last Vital Signs Temp 98.8 F 08/21/18 17:31 Pulse 84 08/21/18 17:31 Resp 20 08/21/18 17:31 BP 111/78 08/21/18 17:31 Pulse Ox 100 08/21/18 21:08 - Labs Result Diagrams: 08/21/18 18:06 08/21/18 18:06 Labs: Laboratory Results - last 24 hr 08/21/18 08/21/18 08/21/18 18:06 18:06 18:06 WBC 10.6 D RBC 4.74 Hgb 14.8 D Hct 43.9 MCV 92.5 MCH 31.3 H MCHC 33.8 RDW 12.7 Plt Count 319 MPV 8.4 Neut % (Auto) 63.2 Lymph % (Auto) 19.2 L [place] % (Auto) 6.8 Eos % (Auto) 10.5 H Baso % (Auto) 0.3 Neut # (Auto) 6.7 Lymph # (Auto) 2.0 [place] # (Auto) 0.7 Eos # (Auto) 1.1 H Baso # (Auto) 0.0 Sodium 138 Potassium 3.8 Chloride 102 Carbon Dioxide 22 Anion Gap 18 BUN 9 Creatinine 0.6 L Est GFR ( Amer) > 60 Est GFR (Non-Af Amer) > 60 Random Glucose 110 H D Calcium 9.9 Total Bilirubin 0.5 AST 49 H D ALT 26 Alkaline Phosphatase 87 Total Protein 8.9 H Albumin 4.7 Globulin 4.2 H Albumin/Globulin Ratio 1.1 Lipase Urine Color Yellow Urine Clarity Clear Urine pH 6.0 Ur Specific [place] 1.014 Urine Protein Negative Urine Glucose (UA) Normal Urine Ketones Trace Urine Blood Negative Urine Nitrate Negative Urine Bilirubin Negative Urine Urobilinogen Normal Ur Leukocyte Esterase Neg Urine WBC (Auto) < 1 Urine RBC (Auto) < 1 Ur Squamous Epith Cells 1 Urine HCG, Qual Negative 08/21/18 18:26 WBC RBC Hgb Hct MCV MCH MCHC RDW Plt Count MPV Neut % (Auto) Lymph % (Auto) [place] % (Auto) Eos % (Auto) Baso % (Auto) Neut # (Auto) Lymph # (Auto) [place] # (Auto) Eos # (Auto) Baso # (Auto) Sodium Potassium Chloride Carbon Dioxide Anion Gap BUN Creatinine Est GFR ( Amer) Est GFR (Non-Af Amer) Random Glucose Calcium Total Bilirubin AST ALT Alkaline Phosphatase Total Protein Albumin Globulin Albumin/Globulin Ratio Lipase 50 Urine Color Urine Clarity Urine pH Ur Specific [place] Urine Protein Urine Glucose (UA) Urine Ketones Urine Blood Urine Nitrate Urine Bilirubin Urine Urobilinogen Ur Leukocyte Esterase Urine WBC (Auto) Urine RBC (Auto) Ur Squamous Epith Cells Urine HCG, Qual Assessment & Plan - Assessment and Plan (Free Text) Assessment: 27F w/ RLQ abdominal pain likely acute appendicitis vs gastroenteritis Plan: NPO IVF IV Abx - cipro,flagyl (pt had allergic reaction to Zosyn in ED - rash, itchy throat) Antiemetics and analgesics PRN CBC,BMP Coags Type and Screen Possible OR tomorrow, pending clinical status D/w Dr. Brittany Ricardo PGY1
[2018-08-21] MEDS ORDERED: Lactated Ringer's 1,000 ML IV SCH (23:15)
[2018-08-21] MEDS ORDERED: Ciprofloxacin 400mg/200ml D5W 400 MG/200 ML BAG IVPB SCH (23:15)
[2018-08-21] MEDS ORDERED: metroNIDAZOLE IV 500 mg/100 ml 500 MG/100 ML BAG IVPB SCH (23:15)
[2018-08-22] MEDS: Lactated Ringer's 1,000 ML IV SCH ×3 (00:15→13:58)
[2018-08-22] MEDS: metroNIDAZOLE IV 500 mg/100 ml 500 MG/100 ML BAG IVPB SCH ×2 (00:35→11:04)
[2018-08-22] MEDS ORDERED: Ciprofloxacin 400mg/200ml D5W 400 MG/200 ML BAG IVPB SCH (01:30)
[2018-08-22 06:43] LABS: MEAN CELL VOLUME 91.4 fL (81.0-99.0); MEAN CORPUSCULAR HEMOGLOBIN 31.2 pg (27.0-31.0); MEAN CORPUSCULAR HGB CONC 34.1 g/dL (33.0-37.0); MEAN PLATELET VOLUME 8.4 fL (7.2-11.7); RBC 4.01 Mil/uL (3.80-5.20); WHITE BLOOD COUNT 8.2 K/uL (4.8-10.8)
[2018-08-22 06:47] LABS: HEMOGLOBIN 12.5 g/dL (11.0-16.0)
[2018-08-22 06:50] LABS: INR 1.1; PARTIAL THROMBOPLASTIN TIME 33.9 SECONDS (21-34); PROTHROMBIN TIME 12.5 SECONDS (9.7-12.2)
[2018-08-22 07:21] LABS: BLOOD UREA NITROGEN 10 mg/dL (7-17); CALCIUM 8.7 mg/dl (8.6-10.4); GFR NON-AFRICAN AMERICAN > 60
--- NOTE | 2018-08-22 07:39 | CP.PCM.PN ---
Subjective - Date & Time of Evaluation Date of Evaluation: 08/22/18 Time of Evaluation: 11:06 - Subjective Subjective: General Surgery Note for Dr. Soto Patient seen and examined at bedside. No acute event overnight. Patient still reports abd pain. Patient does not want any procedure and requesting food. Admits to flatus and BM. No other complaints at this time. 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 Objective - Vital Signs/Intake and Output Vital Signs (last 24 hours): Temp Pulse Resp BP Pulse Ox 98 F 74 20 102/69 100 08/22/18 00:00 08/22/18 00:00 08/22/18 00:00 08/22/18 00:00 08/22/18 00:38 Intake and Output: 08/22/18 08/22/18 06:59 18:59 Intake Total 700 Balance 700 - Medications Medications: Current Medications Acetaminophen (Tylenol 650 Mg Supp) 650 mg IN Q6 PRN PRN Reason: Fever >100.4 F Lactated Ringer's (Lactated Ringer's) 1,000 mls @ 100 mls/hr IV .Q10H KEITH Last Admin: 08/22/18 00:15 Dose: 100 mls/hr Ciprofloxacin (Cipro 400mg/200ml Dsw) 400 mg in 200 mls @ 133 mls/hr IVPB Q12H KEITH; Protocol Last Admin: 08/22/18 01:33 Dose: 133 mls/hr Metronidazole (Flagyl) 500 mg in 100 mls @ 100 mls/hr IVPB Q8H KEITH; Protocol Last Admin: 08/22/18 00:35 Dose: 100 mls/hr Ketorolac Tromethamine (Toradol) 30 mg IVP Q6 PRN PRN Reason: Pain, moderate (4-7) Morphine Sulfate (Morphine) 2 mg IVP Q6 PRN PRN Reason: Pain, severe (8-10) Ondansetron HCl (Zofran Inj) 4 mg IVP Q6H PRN PRN Reason: Nausea/Vomiting Pantoprazole Sodium (Protonix Inj) 40 mg IVP DAILY KEITH Pneumococcal Polyvalent Vaccine (Pneumovax 23 Vaccine) 0.5 ml IM .ONCE ONE Stop: 08/24/18 10:01 - Labs Labs: 08/22/18 06:33 08/22/18 06:33 PT 12.5 SECONDS (9.7-12.2) H 08/22/18 06:33 INR 1.1 08/22/18 06:33 APTT 33.9 SECONDS (21-34) 08/22/18 06:33 - Additional Findings Additional findings: - Constitutional Appears: Well, Non-toxic, No Acute Distress - Head Exam Head Exam: ATRAUMATIC, NORMAL INSPECTION, NORMOCEPHALIC - Eye Exam Eye Exam: EOMI Pupil Exam: PERRL - ENT Exam ENT Exam: Mucous Membranes Moist - Respiratory Exam Respiratory Exam: NORMAL BREATHING PATTERN. absent: Wheezes, Respiratory Distress - Cardiovascular Exam Cardiovascular Exam: REGULAR RHYTHM, +S1, +S2 - GI/Abdominal Exam GI & Abdominal Exam: Normal Bowel Sounds, Soft, Tenderness. absent: Distended, Guarding, Rebound - Extremities Exam Extremities exam: Positive for: normal inspection, pedal pulses present - Neurological Exam Neurological exam: Alert, Oriented x3 - Psychiatric Exam Psychiatric exam: Normal Affect, Normal Mood - Skin Skin Exam: Dry, Intact, Normal Color, Warm Assessment and Plan - Assessment and Plan (Free Text) Assessment: 27F with PMH of ovarian cysts presents with lower abdominal pain Plan: Regular diet IVF IV Abx Antiemetics and analgesics PRN f/u BAGGAGE PORTER recs f/u US Further recs as per Dr. Brittany Murillo PGY2
--- NOTE | 2018-08-22 10:50 | CT ---
Date of service: 08/21/2018 PROCEDURE: CT Abdomen and Pelvis with contrast HISTORY: rlq pain COMPARISON: CT abdomen and pelvis with contrast performed 02/21/18 TECHNIQUE: Contrast dose: 100 mL Visipaque 320 IV Radiation dose: Total exam DLP = 320.34 mGy-cm. This CT exam was performed using one or more of the following dose reduction techniques: Automated exposure control, adjustment of the mA and/or kV according to patient size, and/or use of iterative reconstruction technique. FINDINGS: LOWER THORAX: Subtle right middle lobe and lingular atelectasis. No visible focal consolidation, pleural effusion, or pneumothorax. LIVER: Indeterminate 4.6 x 3.3 cm enhancing mass within the posterior right hepatic lobe. GALLBLADDER AND BILE DUCTS: Unremarkable. PANCREAS: Unremarkable. SPLEEN: Unremarkable. ADRENALS: Unremarkable. KIDNEYS AND URETERS: The kidneys enhance symmetrically. No hydronephrosis or obstructing calculus identified. VASCULATURE: No aortic aneurysm. No atherosclerotic calcification or mural plaque present. BOWEL: Stomach is nondistended. Lack of oral contrast limits evaluation for bowel pathology. Bowel loops appear within normal limits of caliber without evidence of obstruction. APPENDIX: The distal tip of the appendix again appears fluid-filled and dilated measuring up to 1.3 cm in diameter with presence of appendicoliths. No significant periappendiceal inflammatory changes appreciated. PERITONEUM: No significant free fluid. No definite free air. LYMPH NODES: No bulky adenopathy identified. BLADDER: Unremarkable. REPRODUCTIVE: Uterus is present. Tubular cystic structures in the right lower quadrant; considerations include ovarian cysts, para ovarian cysts, or hydrosalpinx. BONES: No acute osseous abnormality is detected. OTHER FINDINGS: None. IMPRESSION: The distal tip of the appendix again appears fluid-filled and dilated measuring up to 1.3 cm in diameter with presence of appendicoliths. No significant periappendiceal inflammatory changes appreciated. Correlate clinically for possibility of acute appendicitis. Re-identified indeterminate 4.6 x 3.3 cm enhancing mass within the posterior right hepatic lobe. If not already performed, outpatient dedicated cross-sectional imaging recommended for further characterization. Tubular cystic structures in the right lower quadrant; considerations include ovarian cysts, para ovarian cysts, or hydrosalpinx. Recommend correlation with pelvic ultrasound. Additional incidental findings as above. Preliminary impression was provided by [employer]. Study marked for PA review.
[2018-08-22] MEDS: Lactobacillus Acidophilus 500 MU Cap PO SCH ×2 (10:58→22:10)
--- NOTE | 2018-08-22 12:12 | RAD ---
Date of service: 08/22/2018 HISTORY: pre-op COMPARISON: 08/19/2017 TECHNIQUE: 1 view obtained. FINDINGS: LUNGS: There is an opacity in the right apex most likely the result of the patient's hair superimposed. Recommend repeat PA chest radiograph with hair removed from the region of concern. No infiltrate elsewhere. PLEURA: No significant pleural effusion identified, no pneumothorax apparent. CARDIOVASCULAR: No aortic atherosclerotic calcification present. Normal cardiac size. No pulmonary vascular congestion. OSSEOUS STRUCTURES: No significant abnormalities. VISUALIZED UPPER ABDOMEN: Normal. OTHER FINDINGS: None. IMPRESSION: Opacity in right apex likely artifactual. Recommend repeat PA chest radiograph with the patient's hair pulled out of the way.
[2018-08-22] MEDS ORDERED: DiphenhydrAMINE 50 mg/ml Inj IVP STA ×2 (13:49→22:47)
[2018-08-22] MEDS ORDERED: Potassium Chloride 10 mEq ER Tab PO ONE (15:00)
[2018-08-22] MEDS ORDERED: Potassium Chloride 20 mEq ER Tab PO ONE (15:00)
--- NOTE | 2018-08-22 15:06 | CP.PCM.CON ---
<Johny Lazo - Last Filed: 08/22/18 18:48> History of Present Illness - History of Present Illness History of Present Illness: RN HOSPICE Consult note for Dr. Dubose Consulted for Right ovarian cyst possible PID vs endometriosis 27 F w/ no PMhx presented to Ed for RLQ pain X 3 days. Patient reports non crampy, non radiating 6/10 pain along with constipation on admission. Patient denies N/V/F/C at the time. Patient was seen yesterday (08/21) at [facility] where she had abdominal xray indicating constipation. Patient was given medications & discharged; however, due to persistent pain, patient presented to [facility] ED. Patient reports additional medication given and having 2 loose bowel movements yesterday. This AM patient reports 3 additional loose bowel movements with complete resolution of abdominal pain. Patient denies headaches, vision changes, chest pain, SOB, abdominal pain, N,V, fevers, chills, hematuria, dysuria. Patient report nasal congestion. 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 at age 14, irregular menstrual cycles, LMP on 08/10/18; currently sexually active w/1 male partner, on nexplanon; denies STD history PMD: None PMHx: None Meds: Nexplanon control Allergies: Bromocripine, flaxseed, piperacillin, tazobactam PSHx: Denies SHx: Denies tobacco, etoh, illict drug use FHx: Maternal family - diabetes, hyperlipidemia, Paternal family - father - from some sort of abdominal Ca (pt unsure) Review of Systems - Constitutional Constitutional: absent: Chills, Fever - EENT Eyes: absent: Blurred Vision, Change in Vision - Cardiovascular Cardiovascular: absent: Chest Pain, Chest Pain at Rest, Dyspnea - Respiratory Respiratory: absent: Dyspnea, Hemoptysis, Dyspnea on Exertion - Gastrointestinal Gastrointestinal: absent: Abdominal Pain, Bloating - Genitourinary Genitourinary: absent: Change in Urinary Stream, Hematuria - Musculoskeletal Musculoskeletal: absent: Abnormal Gait, Arthralgias - Integumentary Integumentary: absent: Alopecia - Endocrine Endocrine: absent: Change in Body Appearance Past Patient History - Past Medical History & Family History Past Medical History?: Yes - Past Social History Smoking Status: Never Smoked - CARDIAC Hx Cardiac Disorders: No - PULMONARY Hx Respiratory Disorders: No - NEUROLOGICAL Hx Neurological Disorder: No - HEENT Hx HEENT Problems: No - RENAL Hx Chronic Kidney Disease: No - ENDOCRINE/METABOLIC Other/Comment: Elevated Prolactine - HEMATOLOGICAL/ONCOLOGICAL Hx Blood Disorders: No - INTEGUMENTARY Hx Dermatological Problems: No - MUSCULOSKELETAL/RHEUMATOLOGICAL Hx Musculoskeletal Disorders: No Hx Falls: No - GASTROINTESTINAL Hx Gastrointestinal Disorders: Yes Hx Constipation: Yes - GENITOURINARY/GYNECOLOGICAL Hx Genitourinary Disorders: Yes Other/Comment: ovarian cyst - PSYCHIATRIC Hx Substance Use: No - SURGICAL HISTORY Hx Surgeries: No - ANESTHESIA Hx Anesthesia: No Meds Allergies/Adverse Reactions: Allergies Allergy/AdvReac Type Severity Reaction Status Date / Time bromocriptine Allergy ANAPHYLAXIS Verified 02/21/18 14:10 flaxseed Allergy ANAPHYLAXIS Verified 02/21/18 14:10 piperacillin [From Zosyn] Allergy Verified 08/21/18 23:16 tazobactam [From Zosyn] Allergy Verified 08/21/18 23:16 - Medications Medications: Current Medications Acetaminophen (Tylenol 650 Mg Supp) 650 mg AR Q6 PRN PRN Reason: Fever >100.4 F Clindamycin Phosphate 900 mg/ (Sodium Chloride) 56 mls @ 106 mls/hr IVPB Q8H KEITH; Protocol Last Admin: 08/22/18 09:00 Dose: 106 mls/hr Gentamicin Sulfate 250 mg/ (Sodium Chloride) 106.25 mls @ 100 mls/hr IVPB Q24H KEITH; Protocol Last Admin: 08/22/18 10:59 Dose: 100 mls/hr Ketorolac Tromethamine (Toradol) 30 mg IVP Q6 PRN PRN Reason: Pain, moderate (4-7) Lactobacillus Acidophilus (Lactobacillus) 1 cap PO Q12H KEITH Last Admin: 08/22/18 10:58 Dose: 1 cap Morphine Sulfate (Morphine) 2 mg IVP Q6 PRN PRN Reason: Pain, severe (8-10) Ondansetron HCl (Zofran Inj) 4 mg IVP Q6H PRN PRN Reason: Nausea/Vomiting Pneumococcal Polyvalent Vaccine (Pneumovax 23 Vaccine) 0.5 ml IM .ONCE ONE Stop: 08/24/18 10:01 Potassium Chloride (K-Dur 20 Meq Er Tab) 40 meq PO ONCE ONE Stop: 08/22/18 15:01 Last Admin: 08/22/18 14:56 Dose: Not Given Physical Exam - Constitutional Appears: Non-toxic, No Acute Distress - Head Exam Head Exam: ATRAUMATIC, NORMAL INSPECTION, NORMOCEPHALIC - Eye Exam Eye Exam: Normal appearance - ENT Exam ENT Exam: Mucous Membranes Moist - Cardiovascular Exam Cardiovascular Exam: +S1, +S2. absent: Systolic Murmur - GI/Abdominal Exam GI & Abdominal Exam: Normal Bowel Sounds, Soft. absent: Distended, Firm, Guarding, Rigid, Tenderness - Extremities Exam Extremities exam: Positive for: full ROM, normal inspection. Negative for: calf tenderness, pedal edema - Back Exam Back exam: absent: CVA tenderness (L), CVA tenderness (R) - Neurological Exam Neurological exam: Alert, Oriented x3 - Psychiatric Exam Psychiatric exam: Normal Affect, Normal Mood - Skin Skin Exam: Dry, Intact, Normal Color, Warm Results - Vital Signs Recent Vital Signs: Last Vital Signs Temp 98 F 08/22/18 13:25 Pulse 90 08/22/18 13:25 Resp 18 08/22/18 13:25 BP 117/78 08/22/18 13:25 Pulse Ox 99 08/22/18 13:25 - Labs Result Diagrams: 08/22/18 06:33 08/22/18 06:33 Labs: Laboratory Results - last 24 hr 08/21/18 08/21/18 08/21/18 18:06 18:06 18:06 WBC 10.6 D RBC 4.74 Hgb 14.8 D Hct 43.9 MCV 92.5 MCH 31.3 H MCHC 33.8 RDW 12.7 Plt Count 319 MPV 8.4 Neut % (Auto) 63.2 Lymph % (Auto) 19.2 L Citrus % (Auto) 6.8 Eos % (Auto) 10.5 H Baso % (Auto) 0.3 Neut # (Auto) 6.7 Lymph # (Auto) 2.0 Citrus # (Auto) 0.7 Eos # (Auto) 1.1 H Baso # (Auto) 0.0 PT INR APTT Sodium 138 Potassium 3.8 Chloride 102 Carbon Dioxide 22 Anion Gap 18 BUN 9 Creatinine 0.6 L Est GFR ( Amer) > 60 Est GFR (Non-Af Amer) > 60 Random Glucose 110 H D Calcium 9.9 Total Bilirubin 0.5 AST 49 H D ALT 26 Alkaline Phosphatase 87 Total Protein 8.9 H Albumin 4.7 Globulin 4.2 H Albumin/Globulin Ratio 1.1 Lipase Urine Color Yellow Urine Clarity Clear Urine pH 6.0 Ur Specific Ramsay 1.014 Urine Protein Negative Urine Glucose (UA) Normal Urine Ketones Trace Urine Blood Negative Urine Nitrate Negative Urine Bilirubin Negative Urine Urobilinogen Normal Ur Leukocyte Esterase Neg Urine WBC (Auto) < 1 Urine RBC (Auto) < 1 Ur Squamous Epith Cells 1 Urine HCG, Qual Negative Blood Type Antibody Screen 08/21/18 08/22/18 08/22/18 18:26 06:33 06:33 WBC 8.2 RBC 4.01 Hgb 12.5 D Hct 36.6 MCV 91.4 MCH 31.2 H MCHC 34.1 RDW 13.0 Plt Count 285 MPV 8.4 Neut % (Auto) Lymph % (Auto) Citrus % (Auto) Eos % (Auto) Baso % (Auto) Neut # (Auto) Lymph # (Auto) Citrus # (Auto) Eos # (Auto) Baso # (Auto) PT INR APTT Sodium Potassium Chloride Carbon Dioxide Anion Gap BUN Creatinine Est GFR ( Amer) Est GFR (Non-Af Amer) Random Glucose Calcium Total Bilirubin AST ALT Alkaline Phosphatase Total Protein Albumin Globulin Albumin/Globulin Ratio Lipase 50 Urine Color Urine Clarity Urine pH Ur Specific Ramsay Urine Protein Urine Glucose (UA) Urine Ketones Urine Blood Urine Nitrate Urine Bilirubin Urine Urobilinogen Ur Leukocyte Esterase Urine WBC (Auto) Urine RBC (Auto) Ur Squamous Epith Cells Urine HCG, Qual Blood Type O POSITIVE Antibody Screen Negative 08/22/18 08/22/18 06:33 06:33 WBC RBC Hgb Hct MCV MCH MCHC RDW Plt Count MPV Neut % (Auto) Lymph % (Auto) Citrus % (Auto) Eos % (Auto) Baso % (Auto) Neut # (Auto) Lymph # (Auto) Citrus # (Auto) Eos # (Auto) Baso # (Auto) PT 12.5 H INR 1.1 APTT 33.9 Sodium 139 Potassium 3.4 L Chloride 105 Carbon Dioxide 24 Anion Gap 13 BUN 10 Creatinine 0.7 Est GFR ( Amer) > 60 Est GFR (Non-Af Amer) > 60 Random Glucose 82 D Calcium 8.7 Total Bilirubin AST ALT Alkaline Phosphatase Total Protein Albumin Globulin Albumin/Globulin Ratio Lipase Urine Color Urine Clarity Urine pH Ur Specific Ramsay Urine Protein Urine Glucose (UA) Urine Ketones Urine Blood Urine Nitrate Urine Bilirubin Urine Urobilinogen Ur Leukocyte Esterase Urine WBC (Auto) Urine RBC (Auto) Ur Squamous Epith Cells Urine HCG, Qual Blood Type Antibody Screen Assessment & Plan - Assessment and Plan (Free Text) Assessment: 27 year old female, admitted for RLQ pain; OBGYN consulted for R ovarian cyst possible PID vs endometriosis; at time of examination patient asymptomatic, stating RLQ pain completely resolved - CT indicating tubular cystic structure in RLQ - Patient will benefit w/ transvaginal/transabdominal pelvic U/S - will require outpatient OBGYN follow up <Guadalupe Dubose - Last Filed: 08/22/18 21:02> Meds - Medications Medications: Current Medications Acetaminophen (Tylenol 650 Mg Supp) 650 mg AR Q6 PRN PRN Reason: Fever >100.4 F Clindamycin Phosphate 900 mg/ (Sodium Chloride) 56 mls @ 106 mls/hr IVPB Q8H KEITH; Protocol Last Admin: 08/22/18 17:27 Dose: 106 mls/hr Moxifloxacin HCl (Avelox Iv 400mg/250ml Ns) 400 mg in 250 mls @ 167 mls/hr IVPB Q24H KEITH; Protocol Last Admin: 08/22/18 18:50 Dose: 167 mls/hr Ketorolac Tromethamine (Toradol) 30 mg IVP Q6 PRN PRN Reason: Pain, moderate (4-7) Lactobacillus Acidophilus (Lactobacillus) 1 cap PO Q12H KEITH Last Admin: 08/22/18 10:58 Dose: 1 cap Morphine Sulfate (Morphine) 2 mg IVP Q6 PRN PRN Reason: Pain, severe (8-10) Ondansetron HCl (Zofran Inj) 4 mg IVP Q6H PRN PRN Reason: Nausea/Vomiting Pneumococcal Polyvalent Vaccine (Pneumovax 23 Vaccine) 0.5 ml IM .ONCE ONE Stop: 08/24/18 10:01 Results - Vital Signs Recent Vital Signs: Last Vital Signs Temp 98.9 F 08/22/18 16:00 Pulse 92 H 08/22/18 16:00 Resp 20 08/22/18 16:00 BP 102/67 08/22/18 16:00 Pulse Ox 97 08/22/18 16:00 - Labs Result Diagrams: 08/22/18 06:33 08/22/18 06:33 Labs: Laboratory Results - last 24 hr 08/22/18 08/22/18 08/22/18 06:33 06:33 06:33 WBC 8.2 RBC 4.01 Hgb 12.5 D Hct 36.6 MCV 91.4 MCH 31.2 H MCHC 34.1 RDW 13.0 Plt Count 285 MPV 8.4 PT 12.5 H INR 1.1 APTT 33.9 Sodium Potassium Chloride Carbon Dioxide Anion Gap BUN Creatinine Est GFR ( Amer) Est GFR (Non-Af Amer) Random Glucose Calcium Blood Type O POSITIVE Antibody Screen Negative 08/22/18 06:33 WBC RBC Hgb Hct MCV MCH MCHC RDW Plt Count MPV PT INR APTT Sodium 139 Potassium 3.4 L Chloride 105 Carbon Dioxide 24 Anion Gap 13 BUN 10 Creatinine 0.7 Est GFR ( Amer) > 60 Est GFR (Non-Af Amer) > 60 Random Glucose 82 D Calcium 8.7 Blood Type Antibody Screen Assessment & Plan - Assessment and Plan (Free Text) Assessment: 27 yo nulliparous female with longstanding Hx of Chronic Constipation and Inflamed bowel Pt presented to Hospital with major complaint of Right Mid to Lower Abdominal pain Admits to drinking little to no water and not much fiber in her diet Apparently has had several BM's since admission and pain has ressolved completely No significant RN HOSPICE History Consultation was requested secondary to Ct scan finding of probable Right Ovarian cyst vs para-ovarian cyst vs Hydrosalphinx Pt denies any pain "related to her pelvic organs" as she expressed it. 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 Plan: Please see addendum to Assessment Pt seen and examined with Dr. Lazo and all of his findings, assessment and POC were fully reviewed and discussed with him. - Date & Time Date: 08/22/18 Time: 19:30
[2018-08-22] MEDS ORDERED: Moxifloxacin IV 400mg/250ml NS 400 MG/250 ML BAG IVPB SCH (16:30)
[2018-08-22 16:56] VITALS: RESP 20
--- NOTE | 2018-08-22 18:54 | CP.PCM.HP ---
Past Patient History - Past Medical History & Family History Past Medical History?: Yes - Past Social History Smoking Status: Never Smoked - CARDIAC Hx Cardiac Disorders: No - PULMONARY Hx Respiratory Disorders: No - NEUROLOGICAL Hx Neurological Disorder: No - HEENT Hx HEENT Problems: No - RENAL Hx Chronic Kidney Disease: No - ENDOCRINE/METABOLIC Other/Comment: Elevated Prolactine - HEMATOLOGICAL/ONCOLOGICAL Hx Blood Disorders: No - INTEGUMENTARY Hx Dermatological Problems: No - MUSCULOSKELETAL/RHEUMATOLOGICAL Hx Musculoskeletal Disorders: No Hx Falls: No - GASTROINTESTINAL Hx Gastrointestinal Disorders: Yes Hx Constipation: Yes - GENITOURINARY/GYNECOLOGICAL Hx Genitourinary Disorders: Yes Other/Comment: ovarian cyst - PSYCHIATRIC Hx Substance Use: No - SURGICAL HISTORY Hx Surgeries: No - ANESTHESIA Hx Anesthesia: No Meds Allergies/Adverse Reactions: Allergies Allergy/AdvReac Type Severity Reaction Status Date / Time bromocriptine Allergy ANAPHYLAXIS Verified 02/21/18 14:10 flaxseed Allergy ANAPHYLAXIS Verified 02/21/18 14:10 piperacillin [From Zosyn] Allergy Verified 08/21/18 23:16 tazobactam [From Zosyn] Allergy Verified 08/21/18 23:16 Physical Exam - Constitutional Appears: Well - Head Exam Head Exam: ATRAUMATIC, NORMAL INSPECTION, NORMOCEPHALIC - Eye Exam Eye Exam: EOMI, Normal appearance, PERRL Pupil Exam: NORMAL ACCOMODATION, PERRL - ENT Exam ENT Exam: Mucous Membranes Moist, Normal Exam - Neck Exam Neck exam: Positive for: Normal Inspection - Respiratory Exam Respiratory Exam: Decreased Breath Sounds - Cardiovascular Exam Cardiovascular Exam: REGULAR RHYTHM, +S1, +S2 - GI/Abdominal Exam GI & Abdominal Exam: Diminished Bowel Sounds, Soft - Rectal Exam Rectal Exam: Deferred - Neurological Exam Neurological exam: Oriented x3 Results - Vital Signs Recent Vital Signs: Last Vital Signs Temp 98.9 F 08/22/18 16:00 Pulse 92 H 08/22/18 16:00 Resp 20 08/22/18 16:00 BP 102/67 08/22/18 16:00 Pulse Ox 97 08/22/18 16:00 - Labs Result Diagrams: 08/22/18 06:33 08/22/18 06:33 Labs: Laboratory Results - last 24 hr 08/22/18 08/22/18 08/22/18 06:33 06:33 06:33 WBC 8.2 RBC 4.01 Hgb 12.5 D Hct 36.6 MCV 91.4 MCH 31.2 H MCHC 34.1 RDW 13.0 Plt Count 285 MPV 8.4 PT 12.5 H INR 1.1 APTT 33.9 Sodium Potassium Chloride Carbon Dioxide Anion Gap BUN Creatinine Est GFR ( Amer) Est GFR (Non-Af Amer) Random Glucose Calcium Blood Type O POSITIVE Antibody Screen Negative 08/22/18 06:33 WBC RBC Hgb Hct MCV MCH MCHC RDW Plt Count MPV PT INR APTT Sodium 139 Potassium 3.4 L Chloride 105 Carbon Dioxide 24 Anion Gap 13 BUN 10 Creatinine 0.7 Est GFR ( Amer) > 60 Est GFR (Non-Af Amer) > 60 Random Glucose 82 D Calcium 8.7 Blood Type Antibody Screen
[2018-08-22] MEDS ORDERED: MethylPREDNISolone 40 mg Vial IVP STA (22:47)
[2018-08-22] MEDS ORDERED: EPINEPHrine 1 mg/ml (1:1000) Inj SC ONE (22:48)
[2018-08-23] MEDS ORDERED: DiphenhydrAMINE 50 mg/ml Inj IVP STA (00:25)
[2018-08-23 06:47] LABS: BASO % 0.2 % (0.0-2.0); EOS % 0.2 % (0.0-4.0); HEMOGLOBIN 13.8 g/dL (11.0-16.0); LYMPH # 0.8 K/uL (1.0-4.3); MEAN CORPUSCULAR HEMOGLOBIN 31.2 pg (27.0-31.0); MEAN CORPUSCULAR HGB CONC 34.2 g/dL (33.0-37.0); MEAN PLATELET VOLUME 8.3 fL (7.2-11.7); MONO # 0.1 K/uL (0.0-0.8); MONO % 0.9 % (0.0-10.0); NEUT % 89.7 % (50.0-75.0); NRBC % 0.1 % (0.0-2.0); PLATELET COUNT 360 K/uL (130-400); RBC 4.43 Mil/uL (3.80-5.20); WHITE BLOOD COUNT 8.9 K/uL (4.8-10.8)
[2018-08-23 07:40] VITALS: BP 114/68; PULSE 83; TEMP 98.3; O2SAT 99
[2018-08-23 08:01] LABS: ALB/GLOB RATIO 1.2 (1.0-2.1); ALBUMIN 4.5 g/dL (3.5-5.0); ALT/SGPT 34 U/L (9-52); AST/SGOT 40 U/L (14-36); BLOOD UREA NITROGEN 10 mg/dL (7-17); CALCIUM 9.6 mg/dl (8.6-10.4); GFR NON-AFRICAN AMERICAN > 60
--- NOTE | 2018-08-23 08:30 | CP.PCM.PN ---
Subjective - Date & Time of Evaluation Date of Evaluation: 08/22/18 Time of Evaluation: 14:00 - Subjective Subjective: pt alert and oriented x3 lying in bed comfortably Objective - Vital Signs/Intake and Output Vital Signs (last 24 hours): Temp Pulse Resp BP Pulse Ox 98.3 F 83 20 114/68 99 08/23/18 07:37 08/23/18 07:37 08/23/18 07:37 08/23/18 07:37 08/23/18 07:37 Intake and Output: 08/23/18 08/23/18 06:59 18:59 Intake Total 1470 Balance 1470 - Medications Medications: Current Medications Acetaminophen (Tylenol 650 Mg Supp) 650 mg [place] Q6 PRN PRN Reason: Fever >100.4 F Clindamycin Phosphate 900 mg/ (Sodium Chloride) 56 mls @ 106 mls/hr IVPB Q8H KEITH; Protocol Last Admin: 08/23/18 00:54 Dose: 106 mls/hr Moxifloxacin HCl (Avelox Iv 400mg/250ml Ns) 400 mg in 250 mls @ 167 mls/hr IVPB Q24H KEITH; Protocol Last Admin: 08/22/18 18:50 Dose: 167 mls/hr Ketorolac Tromethamine (Toradol) 30 mg IVP Q6 PRN PRN Reason: Pain, moderate (4-7) Loratadine (Claritin) 10 mg PO DAILY KEITH Morphine Sulfate (Morphine) 2 mg IVP Q6 PRN PRN Reason: Pain, severe (8-10) Ondansetron HCl (Zofran Inj) 4 mg IVP Q6H PRN PRN Reason: Nausea/Vomiting Pneumococcal Polyvalent Vaccine (Pneumovax 23 Vaccine) 0.5 ml IM .ONCE ONE Stop: 08/24/18 10:01 - Labs Labs: 08/23/18 06:33 08/23/18 06:33 PT 12.5 SECONDS (9.7-12.2) H 08/22/18 06:33 INR 1.1 08/22/18 06:33 APTT 33.9 SECONDS (21-34) 08/22/18 06:33 Assessment and Plan - Assessment and Plan (Free Text) Assessment: pt seen and examined after allergic reaction to genta. VSS. pt complaining of tingleing under tongue. no other symptoms. Dr. Urbano Cardenas notified. Dr. John notified. Antibiotic changed to avelox. will continue to monitor pt.
[2018-08-23 08:41] LABS: BANDS 5 % (0-2); BASOPHIL 1 % (0-2); LYMPHOCYTE 11 % (20-40); NEUTROPHIL 82 % (50-75); PLATELET ESTIMATE NORMAL (NORMAL); REACTIVE LYMPHOCYTES 1 % (0-0); TOTAL CELLS COUNTED 100
[2018-08-23 08:42] LABS: LARGE PLATELETS PRESENT; TOXIC GRANULATION PRESENT
--- NOTE | 2018-08-23 11:34 | CP.PCM.PN ---
Subjective - Date & Time of Evaluation Date of Evaluation: 08/23/18 Time of Evaluation: 11:32 - Subjective Subjective: Surgery Progress Note for Dr. Soto 27F seen and evaluated at bedside this morning. Patient had multiple reactions to antibiotics overnight. Currently patient has no pain or complaints. Tolerating diet. Having BM and passing flatus. Started her menstrual cycle today. Denies f/c, n/v/d, SOB, CP, or urinary symptoms. Objective - Vital Signs/Intake and Output Vital Signs (last 24 hours): Temp Pulse Resp BP Pulse Ox 98.3 F 83 20 114/68 99 08/23/18 07:37 08/23/18 07:37 08/23/18 07:37 08/23/18 07:37 08/23/18 07:37 Intake and Output: 08/23/18 08/23/18 06:59 18:59 Intake Total 1470 Balance 1470 - Medications Medications: Current Medications Acetaminophen (Tylenol 650 Mg Supp) 650 mg [place] Q6 PRN PRN Reason: Fever >100.4 F Clindamycin Phosphate 900 mg/ (Sodium Chloride) 56 mls @ 106 mls/hr IVPB Q8H KEITH; Protocol Last Admin: 08/23/18 10:23 Dose: Not Given Moxifloxacin HCl (Avelox Iv 400mg/250ml Ns) 400 mg in 250 mls @ 167 mls/hr IVPB Q24H KEITH; Protocol Last Admin: 08/22/18 18:50 Dose: 167 mls/hr Ketorolac Tromethamine (Toradol) 30 mg IVP Q6 PRN PRN Reason: Pain, moderate (4-7) Loratadine (Claritin) 10 mg PO DAILY [facility] Last Admin: 08/23/18 10:23 Dose: Not Given Morphine Sulfate (Morphine) 2 mg IVP Q6 PRN PRN Reason: Pain, severe (8-10) Ondansetron HCl (Zofran Inj) 4 mg IVP Q6H PRN PRN Reason: Nausea/Vomiting Pneumococcal Polyvalent Vaccine (Pneumovax 23 Vaccine) 0.5 ml IM .ONCE ONE Stop: 08/24/18 10:01 - Labs Labs: 08/23/18 06:33 08/23/18 06:33 PT 12.5 SECONDS (9.7-12.2) H 08/22/18 06:33 INR 1.1 08/22/18 06:33 APTT 33.9 SECONDS (21-34) 08/22/18 06:33 - Constitutional Appears: Well, Non-toxic, No Acute Distress - Head Exam Head Exam: ATRAUMATIC, NORMAL INSPECTION, NORMOCEPHALIC - Eye Exam Eye Exam: EOMI - ENT Exam ENT Exam: Mucous Membranes Moist - Respiratory Exam Respiratory Exam: NORMAL BREATHING PATTERN. absent: Wheezes, Respiratory Distress - Cardiovascular Exam Cardiovascular Exam: REGULAR RHYTHM - GI/Abdominal Exam GI & Abdominal Exam: Soft, Normal Bowel Sounds. absent: Tenderness - Neurological Exam Neurological Exam: Alert, Awake, Oriented x3 - Psychiatric Exam Psychiatric exam: Normal Affect, Normal Mood - Skin Skin Exam: Dry, Intact, Normal Color, Warm Assessment and Plan - Assessment and Plan (Free Text) Assessment: 27F w/ PMH of right ovarian cysts, presented with abdominal/pelvic pain Plan: Pain likely secondary to ovarian cysts Recommend continued follow up with OBGYN for further work up No acute surgical intervention indicated at this present time Please reconsult as needed Zohaib Ricardo PGY1
--- NOTE | 2018-08-23 12:49 | US ---
Date of service: 08/22/2018 HISTORY: overian cyst, abdominal pain COMPARISON: CT abdomen and pelvis with contrast performed 08/21/18 TECHNIQUE: Real-time transabdominal pelvic ultrasound was performed. In addition a transvaginal pelvic ultrasound was necessary to better depict pelvic anatomy. FINDINGS: UTERUS: Measures 6.6 x 3.0 x 3.4 cm. Anteverted. ENDOMETRIUM: Measures 3 mm in diameter. CERVIX: No cervical abnormality identified. RIGHT OVARY: Measures 5.6 x 4.2 x 5.4 cm. Blood flow is demonstrated. At least 3 right adnexal cystic lesions. Two ovarian cystic lesions measure 2.8 x 2.0 x 2.3 cm and 3.3 x 2.0 x 3.6 cm. Para ovarian cyst measuring approximately 3.7 x 2.4 x 3.2 cm. LEFT OVARY: Measures 2.9 x 2.0 x 2.2 cm. Blood flow is demonstrated. FREE FLUID: No significant free fluid noted. OTHER FINDINGS: None. IMPRESSION: Right adnexal cysts.Two right ovarian cystic lesions measure 2.8 x 2.0 x 2.3 cm and 3.3 x 2.0 x 3.6 cm. Right para ovarian cyst measures approximately 3.7 x 2.4 x 3.2 cm. Recommend 6 week ultrasound follow-up to assess for resolution. Preliminary impression was provided by Rawlemon Tyshawn.
[2018-08-23] MEDS ORDERED: Pneumococcal 23-Valent Vaccine IM ONE (13:45)
== END 2018-08-23 14:36 | disposition home or self-care (01) | DRG 761 ==
LOC: C.ER 16:40 → C.9E 21:14 → C.3T 22:54
PROVIDERS: ADMIT Internal Medicine Nephrology; ATTEND Internal Medicine Nephrology
DX: N83.201 Unspecified ovarian cyst, right side (principal); K59.00 Constipation, unspecified; Z80.0 Family history of malignant neoplasm of digestive organs